=== PATIENT | male | born 1970 | race Caucasian/White ===

== ENCOUNTER 2017-02-12 14:25 | Observation (INO) | payer BC, OTHER ==
--- NOTE | 2017-02-12 14:40 | EDM.PDOC ---
ED HPI GENERAL MEDICAL PROBLEM - General Chief Complaint: General Stated Complaint: high blood pressure, flushed face, near passed out Time Seen by Provider: 02/12/17 14:35 Source of Information: Reports: Patient, Old Records ([facility] chart/EMR), Significant Other History Limitations: Reports: No Limitations - History of Present Illness INITIAL COMMENTS - FREE TEXT/NARRATIVE: Patient was brought to the emergency room via private automobile by his significant other for evaluation of borderline hypertensive crisis associated with near syncopal episodes with symptoms starting at work at about 13:00 hours this afternoon. 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 He was evaluated by the [facility] nurse with blood pressure of 150/100 at that time. He was later evaluated by his regular provider, Brenda Jenkins PA-C, at [facility] in [place], with a blood pressure of 170/108 and some nonspecific shakiness and questionable postictal condition in that facility. An EKG was conducted by his provider, however no further medications, evaluation, etc. were completed in that facility prior to transfer to our emergency room. Note that his provider apparently recommended ambulance transfer, however the patient requested transfer via private automobile. No direct history of seizure activity, stool or urine incontinence, etc. despite the above history. He does have a known history of hypertension, however has not had medical therapy for quite some time. Patient did have some bilateral frontal headaches with the above symptoms, however no other neurological deficits, visual changes, diplopia , change in mental status, etc. The patient denies any chest pain/pressure, heart flutter, orthopnea, diaphoresis, paresthesias, recent decreased exercise tolerance, or any other anginal-type symptoms. No recent history of abdominal pain, heartburn, nausea, diarrhea, melena, gross hematochezia, or any food intolerance, including fatty foods, etc. with normal bowel movement at about 13: 00 hours today. His arthritis has been stable with exception of chronic neck and low back pain. The patient also denies any recent fever, cough, wheezing, dyspnea, etc.. No recent history of OTC cold preparations, increased caffeine intake, etc.. He denies any pain or discomfort at this time, although he did have some nonspecific left lower quadrant abdominal discomfort earlier this morning. Onset: Today, Sudden Onset Date: 02/12/17 Onset Time: 12:00 Duration: Improving Location: Reports: Neck (Chronic), Back (Chronic). Denies: Head, Face, Chest, Abdomen (Resolved), Pelvis, Upper Extremity, Left, Upper Extremity, Right, Lower Extremity, Left, Lower Extremity, Right, Generalized, Radiates to Quality: Reports: Ache. Denies: Burning, Dull, Pressure, Sharp, Stabbing, Throbbing Severity: Mild Improves with: Reports: None Worsens with: Reports: None Context: Reports: Other (As above) Associated Symptoms: Reports: Headaches, Syncope (Near syncope). Denies: Confusion, Chest Pain, Cough, Diaphoresis, Fever/Chills, Loss of Appetite, Malaise, Nausea/Vomiting, Rash, Seizure, Shortness of Breath, Weakness Treatments JET HANDLER: Reports: Other (see below) (None) Headache Pain Score (Numeric/FACES): 3 - Related Data Allergies Allergy/AdvReac Type Severity Reaction Status Date / Time No Known Allergies Allergy Verified 02/12/17 15:16 Home Meds: Home Meds Cyclobenzaprine [Flexeril] 10 mg PO TID PRN 01/10/16 [History] Sildenafil Citrate [Viagra] 50 mg PO DAILY PRN 01/10/16 [History] glipiZIDE [Glucotrol] 5 mg PO BID 01/10/16 [History] Diclofenac Sodium [Voltaren] 75 mg PO BIDMEALS 02/12/17 [History] Testosterone [Androgel] 1 applic TOP DAILY 02/12/17 [History] atorvaSTATin [Lipitor] 20 mg PO BEDTIME 02/12/17 [History] Past Medical History HEENT History: Reports: Hard of Hearing, Impaired Vision. 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 Denies: Afib, Aneurysm, Blood Clots/VTE/DVT, CAD, Heart Failure, Heart Murmur, FL, PVD, Syncope Other Cardiovascular History: Sinus Tachycardia Respiratory History: Reports: COPD, Sleep Apnea. Denies: Asthma, Bronchitis, Recurrent, Intubation, Difficult, Intubation, Previous, PE, Pneumonia, Recurrent , Pneumothorax, Pulmonary Fibrosis, TB Other Respiratory History: Patient unable to tolerate CPAP Gastrointestinal History: Reports: GERD. Denies: Bowel Obstruction, Celiac Disease, Cholelithiasis, Chronic Constipation, Chronic Diarrhea, Colon Polyp, Diverticulosis, Fecal Incontinence, Gastritis, GI Bleed, Hepatitis, Irritable Bowel Syndrome, Jaundice, Pancreatitis, PUD Genitourinary History: Reports: Other (See Below). Denies: Acute Renal Failure , BPH, Chronic Renal Insuffiency, Dialysis, Diabetic Nephropathy, Renal Calculus , STD, Urinary Incontinence, UTI, Recurrent Other Genitourinary History: Erectile dysfunction Musculoskeletal History: Reports: Arthritis, Back Pain, Chronic, Neck Pain, Chronic, Osteoarthritis. Denies: Amputation, Fracture, Fibromyalgia, Gout, RA, SLE Neurological History: Reports: Headaches, Chronic, Migraines. Denies: Cerebral Aneurysms, Concussion, CVA, Head Trauma, Neuropathy, Peripheral, Parkinson's, Reflex Sympathetic Dystrophy, Seizure, TIA Psychiatric History: Reports: None. Denies: Abuse, Victim of, ADD, ADHD, Addiction, Anxiety, Dementia, Depression, Psych Hospitalization(s), Psychosis, PTSD, Suicide Attempt, Suicidal Ideation Endocrine/Metabolic History: Reports: Diabetes, Type II, Obesity/BMI 30+. Denies: Diabetes, Type I, Hypothyroidism, IDDM Other Endocrine/Metabolic History: Testosterone deficiency, hypoalbuminemia Hematologic History: Reports: None. Denies: Anemia, B12 Deficiency, Blood Transfusion(s), Iron Deficiency Immunologic History: Reports: None. Denies: AIDS, HIV, SLE Oncologic (Cancer) History: Reports: None. Denies: Basal Cell Carcinoma, Colon , Hodgkin's Lymphoma, Leukemia, Lymphoma, Malignant Melanoma, Non-Hodgkin's Lymphoma, Squamous Cell Carcinoma Dermatologic History: Reports: None. Denies: Eczema, Psoriasis - Infectious Disease History Infectious Disease History: Reports: Chicken Pox. Denies: C-Difficile, Measles , Meningitis, Mononucleosis, MRSA, Pertussis (Whooping Cough), Rheumatic Fever, Rubella, Scarlet Fever, Shingles, VRE - Past Surgical History Head Surgeries/Procedures: Reports: None HEENT Surgical History: Reports: Adenoidectomy, Oral Surgery, Tonsillectomy, Other (See Below). Denies: Cataract Surgery, Eye Surgery, Laser Surgery, LASIK , Myringotomy w Tube(s), Naso-Sinus Surgery Other HEENT Surgeries/Procedures: Tonsillectomy and adenoidectomy at about age 18, [place] teeth extraction 3 at age 18 Cardiovascular Surgical History: Reports: None. Denies: Varicose, Vascular Surgery Respiratory Surgical History: Reports: None, Other (See Below). Denies: Lung Biopsies, Thoracentesis GI Surgical History: Reports: Appendectomy, Colon, Colonoscopy, EGD, Other (See Below). Denies: Cholecystectomy, Hernia, Abdominal, Hernia, Inguinal, Hernia Repair/Other, Polypectomy Other GI Surgeries/Procedures: Appendectomy at age 17, EGD and colonoscopy in 1991 Male Surgical History: Reports: Circumcision, Vasectomy, Other (See Below) Other Male Surgeries/Procedures: Circumcision as an , vasectomy at age 25 Endocrine Surgical History: Reports: None. Denies: Thyroid Biopsy Neurological Surgical History: Reports: None. Denies: C-Spine, Discectomy, Laminectomy, Lumbar Spine, Sacral Spine, Spinal Fusion, Vertebroplasty Musculoskeletal Surgical History: Reports: None. Denies: Arthroscopic Procedure , Carpal Tunnel, Ganglion Cyst, Joint Replacement, ORIF, Shoulder Surgery Oncologic Surgical History: Reports: None Dermatological Surgical History: Reports: None - Past Imaging History Past Imaging History: Reports: MRI (MRI of the right shoulder in about 2011), Sleep Study Social & Family History - Family History HEENT: Reports: None. Denies: Allergic Rhinitis, Glaucoma, Macular Degeneration , Retinal Detachment Cardiac: Reports: CAD, FL, Other (See Below). Denies: AICD, Aneurysm, Arrhythmia, Blood Clots/VTE/DVT, Heart Failure, Heart Murmur, High Cholesterol, Hypertension, Syncope Other Cardiac Family History: Maternal uncle with FL in his 40s, mother with CABG x4 in her 60s with history of silent MIs Respiratory: Reports: Asthma, COPD, Other (See Below). Denies: PE, Pneumothorax , Sleep Apnea Other Respiratory Family Hisory: 3 children of asthma, maternal grandfather with COPD with history of tobacco use, father with possible COPD secondary to tobacco use GI: Reports: Colon Polyps, Pancreatitis, Other (See Below). Denies: Celiac Disease, Cholelithiasis, GERD, GI bleed, Inflammatory Bowel Disease, Irritable Bowel Syndrome, PUD Other GI Family History: maternal father with colonic polyps, father with history pancreatitis secondary to alcohol abuse : Reports: None. Denies: Dialysis, Renal Calculus, Renal Disease/ Insufficiency, UTI, Recurrent OBGYN: Reports: None. Denies: Dysfunctional uterine bleeding, Endometriosis, Fibroids, Recurrent Spontaneous Musculoskeletal: Reports: None. Denies: Gout, Osteoarthritis, RA, SLE Neurological: Reports: CVA, Seizure, Other (See Below). Denies: Alzheimers Disease, Cerebral Aneurysms, Dementia, Migraines, MS, Neuropathy, Peripheral, Parkinson's, TIA Other Neurological Family History: paternal great grandmother with CVA at about age 92, son with seizures since age 16 secondary to football injury Psychiatric: Reports: Anxiety, Depression, Other (See Below) Other Psychiatric Family History: Father with history of alcohol abuse, anxiety , and depression with subsequent postoperative narcotic addiction Endocrine/Metabolic: Reports: Diabetes, type II, IDDM, Other (See Below). Denies: Diabetes, Type I, Hypothyroidism Other Endocrine/Metabolic Family History: IDDM in parents Hematologic: Reports: Anemia, Other (See Below) Other Hematologic Family History: Father with postoperative anemia Immunologic: Reports: None. Denies: AIDS, HIV, SLE Dermatologic: Reports: Eczema, Other (See Below). Denies: Psoriasis Other Dermatologic Family History: Son with eczema Oncologic: Reports: Colon, Pancreatic, Other (See Below). Denies: Hodgkin's Lymphoma, Leukemia, Lymphoma, Non-Hodgkin's Lymphoma, Prostate Other Oncologic Family History: Paternal grandmother with fatal pancreatic cancer in her 80s, possible fatal colon cancer in maternal grandfather in his 80s, paternal grandaunt with fatal unknown type of cancer in her 60s - Tobacco Use Smoking Status *Q: Current Every Day Smoker Tobacco Use Within Last Twelve Months: Snuff/Dip Years of Tobacco use: 13 Packs/Tins Daily: 0.2 (Started chewing at age 34 with average use of one can per week) Used Tobacco, but Quit: No Smoking Cessation Information Provided To Patient: Yes Second Hand Smoke Exposure: No Second Hand Smoke Education Provided: No - Caffeine Use Caffeine Use: Reports: Soda (3-4 sodas per day). Denies: Coffee, Energy Drinks , Tea - Alcohol Use Alcohol Use History: Yes Days Per Week of Alcohol Use: 0 (No previous DWIs, problems with alcohol abuse, etc.) Number of Drinks Per Day: 6 (Usually beer once a month) Total Drinks Per Week: 0 Alcohol Use in Last Twelve Months: Yes Alcohol Use Frequency: Socially - Recreational Drug Use Recreational Drug Use: No Drug Use in Last 12 Months: No Recreational Drug Type: Denies: Amphetamines (Speed), Cocaine, Flunitrazepam, Heroin, LSD (Acid), Marijuana/Hashish, Methamphetamine, Morphine - Living Situation & Occupation Living situation: Reports: (2005, 3 children), Alone 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 Denies: Fever, Chills, Malaise, Weakness, Fatigue, Night Sweats , Diaphoresis, Decreased Appetite, Weight Gain HEENT: Reports: No Symptoms. Denies: Contact Lenses, Dental Pain, Ear Pain, Eye Discharge, Eye Pain, Glasses, Hearing Loss, Rhinitis, Sinus Problem, Throat Pain, Throat Swelling, Vertigo, Vision Change Respiratory: Reports: No Symptoms. Denies: Shortness of Breath, Wheezing, Pleuritic Chest Pain, Cough, Sputum, Hemoptysis Cardiovascular: Reports: Blood Pressure Problem (As above), Lightheadedness, Syncope (Near-syncope as above). Denies: Claudication, Dyspnea on Exertion, Edema, Orthopnea, Palpitations, PND Endocrine: Reports: No Symptoms. Denies: Fatigue, High Glucose, Low Glucose, Polydypsia, Polyuria GI/Abdominal: Reports: Abdominal Pain (Nonspecific as above). Denies: Anorexia , Black Stool, Bloody Stool, Constipation, Diarrhea, Decreased Appetite, Difficulty Swallowing, Distension, Flatus, Hematemesis, Hematochezia, Melena, Nausea, Stool Incontinence, Vomiting : Reports: No Symptoms. Denies: Discharge, Dysuria, Flank Pain, Frequency, Hematuria, Incontinence, Pain, Urgency, Urinary Retention Musculoskeletal: Reports: Neck Pain (Chronic), Back Pain (Chronic low back). Denies: Shoulder Pain, Arm Pain, Hand Pain, Leg Pain, Joint Swelling, Muscle Pain Skin: Reports: Burn(s) (Chronic first-degree facial and auricular bilaterally secondary to welding exposure). Denies: Jaundice, Pallor, Diaphoresis, Bruising , Pruritis, Rash, Erythema, Wound Neurological: Reports: Dizziness, Syncope (Near-syncope as above). Denies: Headache, Numbness, Paresthesia, Pre-Existing Deficit, Seizure, Tingling, Tremors, Trouble Speaking, Difficulty Walking, Weakness, Change in Speech, Gait Disturbance Psychiatric: Reports: No Symptoms. Denies: Agitation, Anxiety, Confusion, Cravings, Depression, Hallucinations, Suicidal Ideation Hematologic/Lymphatic: Reports: No Symptoms. Denies: Anemia Immunologic: Reports: No Symptoms. Denies: Seasonal Allergy ED EXAM, GENERAL - Physical Exam Exam: See Below Exam Limited By: No Limitations General Appearance: Alert, WD/WN, No Apparent Distress Eye Exam: Bilateral Eye: EOMI, Normal Fundi, Normal Inspection (No nystagmus), PERRL Ears: Normal External Exam, Normal Canal, Normal TMs, Hearing Loss (Mild stable bilateral hearing loss) Nose: Normal Inspection, Normal Mucosa, No Blood Throat/Mouth: Normal Inspection, Normal Lips, Normal Teeth, Normal Gums, Normal Oropharynx, Normal Voice, No Airway Compromise. No: Dysphagia, Inflammation Head: Atraumatic, Normocephalic, Other (Mild facial and bilateral periauricular first degree fam secondary to welding exposure as above). No: Facial Swelling , Facial Tenderness, Sinus Tenderness Neck: Normal Inspection, Supple, Non-Tender, Full Range of Motion. No: Carotid Bruit, Lymphadenopathy (L), Lymphadenopathy (R), Thyromegaly Respiratory/Chest: No Respiratory Distress, Lungs Clear, Normal Breath Sounds, No Accessory Muscle Use, Chest Non-Tender. No: Pleural Rub, Retractions Cardiovascular: Normal Peripheral Pulses, Regular Rate, Rhythm, No Edema, No Gallop, No JVD, No Murmur, No Rub. No: Gallop/S3, Gallop/S4, Friction Rub Peripheral Pulses: 2+: Radial (L), Radial (R), Dorsalis Pedis (L), Dorsalis Pedis (R) GI/Abdominal: Normal Bowel Sounds, Soft, Non-Tender, No Organomegaly, No Distention, No Abnormal Bruit, No Mass, Pelvis Stable, Other (Obese). No: Guarding (Male) Exam: Deferred Rectal (Males) Exam: Deferred Back Exam: Normal Inspection, Full Range of Motion. No: CVA Tenderness (L), CVA Tenderness (R), Muscle Spasm Extremities: Normal Inspection, Normal Range of Motion, Non-Tender, No Pedal Edema, Normal Capillary Refill. No: Erin's Sign Neurological: Alert, Oriented, CN II-XII Intact, Normal Cognition, Normal Gait, Normal Reflexes (Negative Babinski's, finger to nose, and pronator rotation tests. No evidence of facial paresis, tongue deviation, orthostasis, etc.. Excellent reverse thought processes.), No Motor/Sensory Deficits Psychiatric: Normal Affect, Normal Mood Skin Exam: Warm, Dry, Intact, Normal Color, No Rash, Erythema (Facial first degree fam as above). No: Diaphoretic, Wound/Incision Lymphatic: No Adenopathy EKG INTERPRETATION EKG Date: 02/12/17 Time: 14:03 (EKG from the [facility] in [place]) Rhythm: NSR Rate (Beats/Min): 75 [place]: Normal (Left) P-Wave: Present (Mild Diffuse biphasic P waves with pulmonary hypertension by EKG) QRS: Normal (QRS interval of 0.08 seconds with T-wave inversion in lead 3) ST-T: Normal QT: Normal MO/PQ Interval: 0.18 seconds Comparison: No Change (Last EKG on 01/13/16) EKG Interpretation Comments: 1. No acute ischemic changes 2. Pulmonary hypertension by EKG Course - Vital Signs Last Recorded V/S: Last Vital Signs Temp 36.6 C 02/12/17 15:00 Pulse 70 02/12/17 15:35 Resp 18 02/12/17 15:00 BP 143/100 H 02/12/17 15:35 Pulse Ox 99 02/12/17 15:06 Vital Signs - 24 hr 02/12/17 02/12/17 02/12/17 14:45 14:50 15:00 Temperature [ 36.1 C 36.6 C Oral] Pulse, 80 Peripheral Pulse, 82 69 Peripheral [ Right Pulse Oximetry] Respiratory 16 18 Rate Blood Pressure 148/101 H Blood Pressure 142/101 H 142/101 H [Right Upper Arm] O2 Sat by Pulse 100 99 Oximetry O2 Sat by Pulse Oximetry [ Nasal Cannula] 02/12/17 02/12/17 02/12/17 15:06 15:12 15:27 Temperature [ Oral] Pulse, Peripheral Pulse, 68 70 Peripheral [ Right Pulse Oximetry] Respiratory 17 14 Rate Blood Pressure Blood Pressure 141/99 H 143/100 H [Right Upper Arm] O2 Sat by Pulse 99 98 Oximetry O2 Sat by Pulse 99 Oximetry [ Nasal Cannula] 02/12/17 02/12/17 15:35 16:02 Temperature [ Oral] Pulse, 70 Peripheral Pulse, 73 Peripheral [ Right Pulse Oximetry] Respiratory 13 Rate Blood Pressure 143/100 H Blood Pressure 144/94 H [Right Upper Arm] O2 Sat by Pulse 99 Oximetry O2 Sat by Pulse Oximetry [ Nasal Cannula] - Orders/Labs/Meds Orders: Active Orders 24 hr Category Date Time Status Cardiac Monitoring [RC] . DIRECTED Care 02/12/17 14:41 Active EKG Documentation Completion [RC] ASDIRECTED Care 02/12/17 14:41 Inactive Oxygen Therapy, ED [RC] CONTINUOUS Care 02/12/17 14:41 Active Peripheral IV Care [RC] . DIRECTED Care 02/12/17 14:41 Active Pulse Oximetry [RC] CONTINUOUS Care 02/12/17 14:41 Active Up With Assistance [RC] PFP Care 02/12/17 14:41 Active Vital Signs [RC] PFP Care 02/12/17 14:41 Active Nothing per Oral Now Diet [DIET] Diet 02/12/17 Breakfast Active Chest 1V Frontal [CR] Stat Exams 02/12/17 14:41 Taken Sodium Chloride 0.9% [Saline Flush] Med 02/12/17 14:41 Active 10 ml FLUSH ASDIRECTED PRN Obtain Past Medical Record [OM.PC] Urgent Oth 02/12/17 14:41 Active Peripheral IV Insertion Adult [OM.PC] Stat Oth 02/12/17 14:41 Ordered Resuscitation Status Stat Resus Stat 02/12/17 14:41 Ordered Medication Orders Sodium Chloride (Saline Flush) 10 ml FLUSH ASDIRECTED PRN PRN Reason: Keep Vein Open Labs: Laboratory Tests 02/12/17 02/12/17 02/12/17 Range/Units 14:45 14:45 14:45 WBC 8.1 (4.0-10.2) K/uL RBC 5.63 H (4.33-5.41) M/uL Hgb 17.1 H D (13.1-16.8) g/dL Hct 50.1 H (39.0-49.0) % MCV 89.0 D (84.0-98.0) fL MCH 30.4 (28.2-33.3) pg MCHC 34.1 (31.7-36.0) g/dL RDW 12.7 (11.2-14.1) % Plt Count 268 (150-350) K/uL Neut % (Auto) 49.7 (45.0-80.0) % Lymph % (Auto) 40.2 (10.0-50.0) % Ware % (Auto) 8.3 (2.0-14.0) % Eos % (Auto) 1.4 (0.0-5.0) % Baso % (Auto) 0.4 (0.0-2.0) % Neut # (Auto) 4.02 (1.40-7.00) K/uL Lymph # (Auto) 3.25 (0.50-3.50) K/uL Ware # (Auto) 0.67 (0.00-1.00) K/uL Eos # (Auto) 0.11 (0.00-0.50) K/uL Baso # (Auto) 0.03 (0.00-0.20) K/uL PT 10.9 (9.8-11.7) SEC INR 1.0 APTT 26.4 (22.1-29.8) SEC D-Dimer, Quantitative < 100 (0-400) ng/mL Sodium (136-145) mmol/L Potassium (3.5-5.1) mmol/L Chloride (98-107) mmol/L Carbon Dioxide (21.0-32.0) mmol/L BUN (7-18) mg/dL Creatinine (0.51-1.17) mg/dL Est Cr Clr Drug Dosing Estimated GFR (MDRD) mL/min Glucose (74-106) mg/dL Lactic Acid (0.4-2.0) mmol/L Uric Acid (2.6-7.2) mg/dL Calcium (8.5-10.1) mg/dL Magnesium (1.8-2.4) mg/dL Total Bilirubin (0.2-1.0) mg/dL AST (15-37) U/L ALT (12-78) U/L Alkaline Phosphatase (46-116) IU/L Creatine Kinase (26-308) U/L Creatine Kinase Index (0.0-2.5) % CK-MB (CK-2) (0.00-3.60) ng/mL Troponin I (0.000-0.056) ng/mL NT-Pro-B Natriuret Pep (0-125) pg/mL Total Protein (6.4-8.2) g/dL Albumin (3.4-5.0) g/dL TSH, Ultra Sensitive (0.358-3.740) mIU/mL 02/12/17 02/12/17 Range/Units 14:45 14:45 WBC (4.0-10.2) K/uL RBC (4.33-5.41) M/uL Hgb (13.1-16.8) g/dL Hct (39.0-49.0) % MCV (84.0-98.0) fL MCH (28.2-33.3) pg MCHC (31.7-36.0) g/dL RDW (11.2-14.1) % Plt Count (150-350) K/uL Neut % (Auto) (45.0-80.0) % Lymph % (Auto) (10.0-50.0) % [place] % (Auto) (2.0-14.0) % Eos % (Auto) (0.0-5.0) % Baso % (Auto) (0.0-2.0) % Neut # (Auto) (1.40-7.00) K/uL Lymph # (Auto) (0.50-3.50) K/uL Ware # (Auto) (0.00-1.00) K/uL Eos # (Auto) (0.00-0.50) K/uL Baso # (Auto) (0.00-0.20) K/uL PT (9.8-11.7) SEC INR APTT (22.1-29.8) SEC D-Dimer, Quantitative (0-400) ng/mL Sodium 142 (136-145) mmol/L Potassium 4.2 (3.5-5.1) mmol/L Chloride 105 (98-107) mmol/L Carbon Dioxide 29.2 (21.0-32.0) mmol/L BUN 16 (7-18) mg/dL Creatinine 1.08 (0.51-1.17) mg/dL Est Cr Clr Drug Dosing TNP Estimated GFR (MDRD) > 60 mL/min Glucose 90 (74-106) mg/dL Lactic Acid 1.3 (0.4-2.0) mmol/L Uric Acid 5.3 (2.6-7.2) mg/dL Calcium 9.3 (8.5-10.1) mg/dL Magnesium 1.9 (1.8-2.4) mg/dL Total Bilirubin 0.5 (0.2-1.0) mg/dL AST 32 (15-37) U/L ALT 56 (12-78) U/L Alkaline Phosphatase 48 (46-116) IU/L Creatine Kinase 582 H (26-308) U/L Creatine Kinase Index 1.0 (0.0-2.5) % CK-MB (CK-2) 5.90 H* (0.00-3.60) ng/mL Troponin I 0.034 (0.000-0.056) ng/mL NT-Pro-B Natriuret Pep 18 (0-125) pg/mL Total Protein 8.1 (6.4-8.2) g/dL Albumin 4.3 (3.4-5.0) g/dL TSH, Ultra Sensitive 2.369 (0.358-3.740) mIU/mL Meds: Medications Generic Name Dose Route Start Last Admin Trade Name Freq PRN Reason Stop Dose Admin Sodium Chloride 10 ml 02/12/17 14:41 Saline Flush FLUSH ASDIRECTED PRN Keep Vein Open Discontinued Medications Generic Name Dose Route Start Last Admin Trade Name Freq PRN Reason Stop Dose Admin Famotidine 40 mg 02/12/17 14:41 02/12/17 14:59 Pepcid IVPUSH 02/12/17 14:42 40 mg ONETIME ONE Administration Metoprolol Tartrate 2.5 mg 02/12/17 14:41 02/12/17 14:50 Lopressor IVPUSH 02/12/17 14:42 2.5 mg ONETIME ONE Administration Metoprolol Tartrate 25 mg 02/12/17 15:33 02/12/17 15:35 Lopressor PO 02/12/17 15:34 25 mg ONETIME ONE Administration - Radiology Interpretation Free Text/Narrative:: 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 Note improvement of pulses into the 60s after medical therapy Chest x-ray, portable, shows somewhat suboptimal film with poor inspiration with evidence of moderate cardiomegaly, mild to moderate pulmonary obstructive disease, with probable pulmonary hypertension and/or mild centralized CHF. No pneumothorax or pulmonary infiltrates. Moderately elevated right hemidiaphragm Departure - Departure Time of Disposition: 16:15 Disposition: Refer to Observation Condition: Good Clinical Impression: Peptic reflux disease, Testosterone deficiency, Near syncope, Elevated CK, Tobacco abuse counseling Hypertension Qualifiers: Hypertension type: essential hypertension Qualified Code(s): I10 - Essential ( primary) hypertension COPD (chronic obstructive pulmonary disease) Qualifiers: COPD type: COPD with acute lower respiratory infection Qualified Code(s): J44.0 - Chronic obstructive pulmonary disease with acute lower respiratory infection Diabetes mellitus Qualifiers: Diabetes mellitus type: type 2 Diabetes mellitus complication status: without complication Diabetes mellitus retirement insulin use: with retirement use Qualified Code(s): E11.9 - Type 2 diabetes mellitus without complications Hyperlipidemia Qualifiers: Hyperlipidemia type: mixed hyperlipidemia Qualified Code(s): E78.2 - Mixed hyperlipidemia Osteoarthritis Qualifiers: Osteoarthritis location: multiple joints Osteoarthritis type: primary Qualified Code(s): M15.0 - Primary generalized (osteo)arthritis - Discharge Information Forms: ED Department Discharge Care Plan Goals: See plan - Problem List & Annotations (1) Near syncope SNOMED Code(s): 261376068 Code(s): R55 - SYNCOPE AND COLLAPSE Status: Acute Priority: High Current Visit: Yes Onset Date: 02/12/17 Annotation/Comment:: Near syncopal episode and borderline hypertensive crisis as above. No chest pain or true anginal type symptoms. No neurological deficits or true evidence of seizure type activity. Chest pain protocol was not initiated secondary to absence of anginal type symptoms. Mild change in troponin I, which is still normal, with otherwise normal BNP, d-dimer, EKG, etc. Note normal cardiac index as below. Initiate standard rule out [place] orders. Consider further workup on an outpatient basis, including echocardiogram, Cardiolite stress test, etc. secondary to his multiple cardiac risk factors. Dr. Jose assumes care in the a.m.. Neurological checks with vitals. Cardiology consultation depending on his clinical course.. Patient normally gets his care through the [facility] in [place]. Patient did not have a headache on arrival with mild borderline 2/10 headache prior to admission (2) Hypertension SNOMED Code(s): 17248382 Code(s): I10 - ESSENTIAL (PRIMARY) HYPERTENSION Status: Chronic Priority : Medium Annotation/Comment:: Borderline hypertensive crisis as above Blood pressure is much improved on admission with IV and oral metoprolol therapy as above. Secondary to his history of diabetes mellitus also initiate lisinopril therapy later today. Qualifiers: Hypertension type: essential hypertension Qualified Code(s): I10 - Essential (primary) hypertension (3) COPD (chronic obstructive pulmonary disease) SNOMED Code(s): 09431499 Code(s): J44.9 - CHRONIC OBSTRUCTIVE PULMONARY DISEASE, UNSPECIFIED Status : Chronic Priority: Medium Annotation/Comment:: Stable by history with no recent fever or bronchitic type symptoms Qualifiers: COPD type: COPD with acute lower respiratory infection Qualified Code(s): J44.0 - Chronic obstructive pulmonary disease with acute lower respiratory infection (4) Osteoarthritis SNOMED Code(s): 706773266 Code(s): M19.90 - UNSPECIFIED OSTEOARTHRITIS, UNSPECIFIED SITE Status: Chronic Priority: Medium Annotation/Comment:: Stable by history with no myalgias, muscle weakness, etc. Qualifiers: Osteoarthritis location: multiple joints Osteoarthritis type: primary Qualified Code(s): M15.0 - Primary generalized (osteo)arthritis (5) Diabetes mellitus SNOMED Code(s): 61741442 Code(s): E11.9 - TYPE 2 DIABETES MELLITUS WITHOUT COMPLICATIONS Status: Acute Priority: High Annotation/Comment:: Stable by history. Glycosylated hemoglobin in the a.m. Her home blood sugars ranging between the 60s and 150s recently by his history Qualifiers: Diabetes mellitus type: type 2 Diabetes mellitus complication status: without complication Diabetes mellitus retirement insulin use: with intermediate project manager use Qualified Code(s): E11.9 - Type 2 diabetes mellitus without complications ; Z79.4 - long-term (current) use of insulin (6) Hyperlipidemia SNOMED Code(s): 53461516 Code(s): E78.5 - HYPERLIPIDEMIA, UNSPECIFIED Status: Chronic Priority: Medium Annotation/Comment:: Currently under therapy. Lipid panel in the a.m. Qualifiers: Hyperlipidemia type: mixed hyperlipidemia Qualified Code(s): E78.2 - Mixed hyperlipidemia (7) Peptic reflux disease SNOMED Code(s): 59088863 Code(s): K21.9 - GASTRO-ESOPHAGEAL REFLUX DISEASE WITHOUT ESOPHAGITIS Status: Chronic Priority: Medium Annotation/Comment:: Stable by history. IV Pepcid given as GI prophylaxis in the emergency room (8) Testosterone deficiency SNOMED Code(s): 0972073772470 Code(s): E29.1 - TESTICULAR HYPOFUNCTION Status: Chronic Priority: Medium Annotation/Comment:: Currently under therapy. The patient was counseled on the risks of testosterone replacement, including increased risk of thrombosis, prostate cancer, etc. This will be discussed further with his regular providers with consideration of discontinuation of this medication secondary to multiple cardiac risk factors (9) Tachycardia SNOMED Code(s): 1116612 Code(s): R00.0 - TACHYCARDIA, UNSPECIFIED Status: Chronic Priority: Medium Current Visit: No Onset Date: 01/11/16 Annotation/Comment:: Patient with previous history of tachycardia but not during our evaluation. Beta ronny therapy initiated as above. Continue to observe closely. (10) Elevated CK SNOMED Code(s): 775475257 Code(s): R74.8 - ABNORMAL LEVELS OF OTHER SERUM ENZYMES Status: Acute Priority: High Current Visit: Yes Onset Date: 02/12/17 Annotation/Comment: : CK and CK-MB elevation possibly secondary to physical activity and/or current statin therapy with no symptoms at this time. Note normal cardiac index (11) Tobacco abuse counseling SNOMED Code(s): 615258501, 028522825 Code(s): Z71.6 - TOBACCO ABUSE COUNSELING Status: Chronic Priority: Medium Current Visit: Yes Annotation/Comment:: Patient was counseled on the use of Nicorette gum with tobacco cessation strongly encouraged. Tobacco cessation information provided at discharge. - Problem List Review Problem List Initiated/Reviewed/Updated: Yes - My Orders Last 24 Hours: My Active Orders 02/12/17 14:41 Cardiac Monitoring [RC] . DIRECTED EKG Documentation Completion [RC] ASDIRECTED Oxygen Therapy, ED [RC] CONTINUOUS Peripheral IV Care [RC] . DIRECTED Pulse Oximetry [RC] CONTINUOUS Up With Assistance [RC] PFP Vital Signs [RC] PFP Chest 1V Frontal [CR] Stat Sodium Chloride 0.9% [Saline Flush] 10 ml FLUSH ASDIRECTED PRN Obtain Past Medical Record [OM.PC] Urgent Peripheral IV Insertion Adult [OM.PC] Stat Resuscitation Status Stat 02/12/17 Breakfast Nothing per Oral Now Diet [DIET] - Assessment/Plan Last 24 Hours: My Active Orders 02/12/17 14:41 Cardiac Monitoring [RC] . DIRECTED EKG Documentation Completion [RC] ASDIRECTED Oxygen Therapy, ED [RC] CONTINUOUS Peripheral IV Care [RC] . DIRECTED Pulse Oximetry [RC] CONTINUOUS Up With Assistance [RC] PFP Vital Signs [RC] PFP Chest 1V Frontal [CR] Stat Sodium Chloride 0.9% [Saline Flush] 10 ml FLUSH ASDIRECTED PRN Obtain Past Medical Record [OM.PC] Urgent Peripheral IV Insertion Adult [OM.PC] Stat Resuscitation Status Stat 02/12/17 Breakfast Nothing per Oral Now Diet [DIET] Assessment:: As above Plan: As above. Extensive precautions were given to the patient, who is in agreement with the treatment plan. The patient's condition is stable enough for observation status and general supervision.
[2017-02-12] MEDS ORDERED: Famotidine 20 MG/2 ML SDV IVPUSH ONE (14:41)
[2017-02-12] MEDS ORDERED: Metoprolol Tartrate 5 MG/5 ML SDV IVPUSH ONE (14:41)
[2017-02-12] MEDS ORDERED: Sodium Chloride 0.9% 10 ML Syringe FLUSH PRN ×2 (14:41→16:26)
[2017-02-12 15:22] LABS: CHLORIDE,CL 105 mmol/L (98-107); SODIUM,NA 142 mmol/L (136-145)
[2017-02-12] MEDS ORDERED: Metoprolol Tartrate 50 MG Tab PO ONE (15:33)
[2017-02-12] MEDS ORDERED: Temazepam 15 MG Cap PO PRN (16:26)
[2017-02-12] MEDS ORDERED: Albuterol 0.083% 2.5 MG/3 ML Neb Soln INH PRN (16:29)
[2017-02-12] MEDS ORDERED: Albuterol/Ipratropium 3.0-0.5 MG/3 ML Neb Soln NEB PRN (16:29)
[2017-02-12] MEDS: glipiZIDE 5 MG Tab PO SCH (17:47)
[2017-02-12] MEDS: Diclofenac Sodium 75 MG Tab.EC PO SCH (17:47)
[2017-02-12] MEDS: Acetaminophen 325 MG Tab PO PRN (17:48)
[2017-02-12] MEDS ORDERED: Lisinopril 10 MG Tab PO SCH (18:00)
[2017-02-12] MEDS ORDERED: Enalaprilat 1.25 MG/ML SDV IVPUSH ONE (19:36)
[2017-02-12] MEDS ORDERED: atorvaSTATin 40 MG Tab PO SCH (20:00)
[2017-02-12] MEDS ORDERED: Lisinopril 10 MG Tab PO ONE (22:00)
[2017-02-13] MEDS: Cyclobenzaprine 10 MG Tab PO PRN ×2 (01:29→08:26)
[2017-02-13] MEDS: Acetaminophen 325 MG Tab PO PRN ×2 (01:29→09:30)
[2017-02-13 07:53] LABS: CHLORIDE,CL 104 mmol/L (98-107); SODIUM,NA 139 mmol/L (136-145)
[2017-02-13] MEDS ORDERED: Metoprolol Succinate 25 MG Tab.ER PO SCH (08:00)
[2017-02-13] MEDS: glipiZIDE 5 MG Tab PO SCH (08:10)
[2017-02-13] MEDS: Diclofenac Sodium 75 MG Tab.EC PO SCH (08:11)
--- NOTE | 2017-02-13 11:40 | PCM.DCSUM1 ---
Discharge Summary - Hospital Course Free Text/Narrative:: Patient doing well. Denies symptoms. BP back to normal. Discussed with him causes of hypertension including his use of caffeine. Will hold all caffeine beverages at time of DC. Patient to follow up with PCP for post hospitalization visit in 1 week. Patient is to check his BP 3 times a week at work and report to PCP his BPs. - Discharge Data Discharge Date: 02/13/17 Discharge Disposition: Home, Self-Care 01 Condition: Good - Discharge Diagnosis/Problem(s) (1) Near syncope SNOMED Code(s): 833077080 ICD Code: R55 - SYNCOPE AND COLLAPSE Status: Acute Priority: High Current Visit: Yes Onset Date: 02/12/17 Problem Details: Reports no further symptoms. Patient would like to DC. (2) Hypertension SNOMED Code(s): 08229664 ICD Code: I10 - ESSENTIAL (PRIMARY) HYPERTENSION Status: Chronic Priority : Medium Current Visit: Yes Problem Details: BPs stable at this time. Back to baseline. Qualifiers: Hypertension type: essential hypertension Qualified Code(s): I10 - Essential (primary) hypertension - Patient Instructions Diet: Diabetic Diet (No caffeine ) Diet, Other: No Caffeine Activity: As Tolerated Driving: May Drive Today Showering/Bathing: May Shower Other/Special Instructions: Follow up with PCP in 1 week for post hospital visit. Check your BP 3 times a week and report those readings back to your PCP - Discharge Plan Home Medications: Home Meds Cyclobenzaprine [Flexeril] 10 mg PO TID PRN 01/10/16 [History] Sildenafil Citrate [Viagra] 50 mg PO DAILY PRN 01/10/16 [History] glipiZIDE [Glucotrol] 5 mg PO BID 01/10/16 [History] Diclofenac Sodium [Voltaren] 75 mg PO BIDMEALS 02/12/17 [History] Testosterone [Androgel] 1 applic TOP DAILY 02/12/17 [History] atorvaSTATin [Lipitor] 20 mg PO BEDTIME 02/12/17 [History] Forms: ED Department Discharge Referrals: ROBERTO UNGER [Other] (Follow up with PCP in 1 week. Find a PCP in this area. ) - Discharge Summary/Plan Comment DC Time >30 min.: No - General Info Date of Service: 02/13/17 - Review of Systems General: Reports: No Symptoms HEENT: Reports: No Symptoms Pulmonary: Reports: No Symptoms Cardiovascular: Reports: No Symptoms Gastrointestinal: Reports: No Symptoms Genitourinary: Reports: No Symptoms Musculoskeletal: Reports: No Symptoms Skin: Reports: No Symptoms Neurological: Reports: No Symptoms Psychiatric: Reports: No Symptoms - Patient Data Vitals - Most Recent: Last Vital Signs Temp 97.7 F 02/13/17 10:00 Pulse 72 02/13/17 10:00 Resp 16 02/13/17 10:00 BP 117/80 02/13/17 10:00 Pulse Ox 97 02/13/17 10:00 Weight - Most Recent: 231 lb 8 oz I&O - Last 24 hours: Intake & Output 02/12/17 02/13/17 02/13/17 22:59 06:59 14:59 Intake Total 480 Output Total 200 Balance 280 Lab Results - Last 24 hrs: Laboratory Results - last 24 hr 02/12/17 02/12/17 02/12/17 Range/Units 19:29 20:20 20:50 WBC (4.0-10.2) K/uL RBC (4.33-5.41) M/uL Hgb (13.1-16.8) g/dL Hct (39.0-49.0) % MCV (84.0-98.0) fL MCH (28.2-33.3) pg MCHC (31.7-36.0) g/dL RDW (11.2-14.1) % Plt Count (150-350) K/uL Neut % (Auto) (45.0-80.0) % Lymph % (Auto) (10.0-50.0) % [place] % (Auto) (2.0-14.0) % Eos % (Auto) (0.0-5.0) % Baso % (Auto) (0.0-2.0) % Neut # (Auto) (1.40-7.00) K/uL Lymph # (Auto) (0.50-3.50) K/uL [place] # (Auto) (0.00-1.00) K/uL Eos # (Auto) (0.00-0.50) K/uL Baso # (Auto) (0.00-0.20) K/uL Sodium (136-145) mmol/L Potassium (3.5-5.1) mmol/L Chloride (98-107) mmol/L Carbon Dioxide (21.0-32.0) mmol/L BUN (7-18) mg/dL Creatinine (0.51-1.17) mg/dL Est Cr Clr Drug Dosing mL/min Estimated GFR (MDRD) mL/min Glucose (74-106) mg/dL POC Glucose 56 L 98 (65-110) mg/dl Hemoglobin A1c (4.3-5.7) % Calcium (8.5-10.1) mg/dL Total Bilirubin (0.2-1.0) mg/dL AST (15-37) U/L ALT (12-78) U/L Alkaline Phosphatase (46-116) IU/L Creatine Kinase 490 H (26-308) U/L Creatine Kinase Index 1.0 (0.0-2.5) % CK-MB (CK-2) 4.70 H* (0.00-3.60) ng/mL Troponin I 0.028 (0.000-0.056) ng/mL NT-Pro-B Natriuret Pep (0-125) pg/mL Total Protein (6.4-8.2) g/dL Albumin (3.4-5.0) g/dL Triglycerides (30-150) mg/dL Cholesterol (100-200) mg/dL LDL Cholesterol, Calc (0-100) mg/dL HDL Cholesterol (40-60) mg/dL 02/13/17 02/13/17 02/13/17 Range/Units 07:08 07:08 07:08 WBC 6.3 (4.0-10.2) K/uL RBC 5.26 (4.33-5.41) M/uL Hgb 16.2 (13.1-16.8) g/dL Hct 47.3 (39.0-49.0) % MCV 89.9 (84.0-98.0) fL MCH 30.8 (28.2-33.3) pg MCHC 34.2 (31.7-36.0) g/dL RDW 12.6 (11.2-14.1) % Plt Count 236 (150-350) K/uL Neut % (Auto) 49.7 (45.0-80.0) % Lymph % (Auto) 37.5 (10.0-50.0) % [place] % (Auto) 9.5 (2.0-14.0) % Eos % (Auto) 3.0 (0.0-5.0) % Baso % (Auto) 0.3 (0.0-2.0) % Neut # (Auto) 3.15 (1.40-7.00) K/uL Lymph # (Auto) 2.38 (0.50-3.50) K/uL [place] # (Auto) 0.60 (0.00-1.00) K/uL Eos # (Auto) 0.19 (0.00-0.50) K/uL Baso # (Auto) 0.02 (0.00-0.20) K/uL Sodium 139 (136-145) mmol/L Potassium 4.9 (3.5-5.1) mmol/L Chloride 104 (98-107) mmol/L Carbon Dioxide 29.8 (21.0-32.0) mmol/L BUN 13 (7-18) mg/dL Creatinine 1.19 H (0.51-1.17) mg/dL Est Cr Clr Drug Dosing 79.24 mL/min Estimated GFR (MDRD) > 60 mL/min Glucose 108 H (74-106) mg/dL POC Glucose (65-110) mg/dl Hemoglobin A1c 6.0 H (4.3-5.7) % Calcium 8.8 (8.5-10.1) mg/dL Total Bilirubin 0.5 (0.2-1.0) mg/dL AST 26 (15-37) U/L ALT 51 (12-78) U/L Alkaline Phosphatase 44 L (46-116) IU/L Creatine Kinase 425 H (26-308) U/L Creatine Kinase Index 0.9 (0.0-2.5) % CK-MB (CK-2) 4.00 H (0.00-3.60) ng/mL Troponin I 0.034 (0.000-0.056) ng/mL NT-Pro-B Natriuret Pep 13 (0-125) pg/mL Total Protein 7.1 (6.4-8.2) g/dL Albumin 3.6 (3.4-5.0) g/dL Triglycerides 95 (30-150) mg/dL Cholesterol 134 (100-200) mg/dL LDL Cholesterol, Calc 73 (0-100) mg/dL HDL Cholesterol 42 (40-60) mg/dL Med Orders - Current: Current Medications Acetaminophen (Tylenol) 650 mg PO Q4H PRN PRN Reason: Pain Last Admin: 02/13/17 09:30 Dose: 650 mg Albuterol (Proventil Neb Soln) 2.5 mg INH Q2H PRN PRN Reason: SHORTNESS OF BREATH Albuterol/Ipratropium (Duoneb 3.0-0.5 Mg/3 Ml) 3 ml NEB Q4HRRT PRN PRN Reason: Dyspnea Atorvastatin Calcium (Lipitor) 20 mg PO BEDTIME [facility] Last Admin: 02/12/17 20:25 Dose: 20 mg Coenzyme Q10 (Coenzyme Q10) 100 mg PO BID [facility] Last Admin: 02/13/17 08:13 Dose: 100 mg Cyclobenzaprine HCl (Flexeril) 10 mg PO TID PRN PRN Reason: Spasms Last Admin: 02/13/17 08:26 Dose: 10 mg Diclofenac Sodium (Voltaren) 75 mg PO BIDMEALS [facility] Last Admin: 02/13/17 08:11 Dose: 75 mg Glipizide (Glucotrol) 5 mg PO BIDMEALS [facility] Last Admin: 02/13/17 08:10 Dose: 5 mg Lisinopril (Prinivil) 10 mg PO QPM [facility] Metoprolol Succinate (Toprol Xl) 25 mg PO DAILY [facility] Last Admin: 02/13/17 08:29 Dose: Not Given Sodium Chloride (Saline Flush) 10 ml FLUSH ASDIRECTED PRN PRN Reason: Keep Vein Open Sodium Chloride (Saline Flush) 10 ml FLUSH Q12HR PRN PRN Reason: Keep Vein Open Temazepam (Restoril) 15 mg PO BEDTIME PRN PRN Reason: Insomnia Last Admin: 02/12/17 23:29 Dose: 15 mg Discontinued Medications Diazepam (Valium) 2.5 mg IVPUSH ONETIME ONE Stop: 02/12/17 19:39 Last Admin: 02/12/17 20:25 Dose: 2.5 mg Enalaprilat (Vasotec Iv) 1.25 mg IVPUSH ONETIME ONE Stop: 02/12/17 19:37 Last Admin: 02/12/17 20:26 Dose: 1.25 mg Famotidine (Pepcid) 40 mg IVPUSH ONETIME ONE Stop: 02/12/17 14:42 Last Admin: 02/12/17 14:59 Dose: 40 mg Lisinopril (Prinivil) 5 mg PO QPM VERITO Last Admin: 02/12/17 17:53 Dose: 5 mg Lisinopril (Prinivil) 10 mg PO ONETIME ONE Stop: 02/12/17 22:01 Last Admin: 02/12/17 22:00 Dose: 10 mg Metoprolol Tartrate (Lopressor) 2.5 mg IVPUSH ONETIME ONE Stop: 02/12/17 14:42 Last Admin: 02/12/17 14:50 Dose: 2.5 mg Metoprolol Tartrate (Lopressor) 25 mg PO ONETIME ONE Stop: 02/12/17 15:34 Last Admin: 02/12/17 15:35 Dose: 25 mg - Exam General: Reports: Alert, Oriented HEENT: Reports: Pupils Equal, Pupils Reactive, EOMI, Mucous Membr. Moist/[place]: Reports: Supple Lungs: Reports: Clear to Auscultation, Normal Respiratory Effort Cardiovascular: Reports: Regular Rate, Regular Rhythm GI/Abdominal Exam: Normal Bowel Sounds, Soft, Non-Tender, No Organomegaly, No Distention, No Abnormal Bruit, No Mass, Pelvis Stable (Male) Exam: Deferred Rectal (Males) Exam: Deferred Back Exam: Reports: Normal Inspection, Full Range of Motion Extremities: Normal Inspection, Normal Range of Motion, Non-Tender, No Pedal Edema, Normal Capillary Refill Skin: Reports: Warm, Dry, Intact Neurological: Reports: No New Focal Deficit *Q Meaningful Use (DIS) - VTE *Q VTE Criteria *Q: - Stroke *Q Stroke Criteria *Q: - AMI *Q AMI Criteria *Q:
[2017-02-13 17:06] VITALS: BP 130/97
[2017-02-13] MEDS ORDERED: Lisinopril 10 MG Tab PO SCH (18:00)
== END 2017-02-13 17:25 | disposition home or self-care (01) ==
LOC: LL.ED 14:25 → LL.MS 16:04
PROVIDERS: ADMIT Family Medicine; ATTEND Family Medicine
DX: R55 Syncope and collapse (principal); I10 Essential (primary) hypertension; E11.9 Type 2 diabetes mellitus without complications; J44.9 Chronic obstructive pulmonary disease, unspecified; G47.30 Sleep apnea, unspecified; K21.9 Gastro-esophageal reflux disease without esophagitis; E66.9 Obesity, unspecified; Z79.899 Other long term (current) drug therapy; Z68.30 Body mass index [BMI] 30.0-30.9, adult; Z90.49 Acquired absence of other specified parts of digestive tract; Z98.890 Other specified postprocedural states; Z98.52 Vasectomy status; F17.210 Nicotine dependence, cigarettes, uncomplicated
CPT/HCPCS: 36415; 71010; 80053; 80061; 82272; 82550; 82553; 82962; 83036; 83605; 83735; 83880; 84443; 84484; 84550; 85025; 85379; 85610; 85730; 87338; 93005; 96374; 96375; 99285; A9270; J3360; G0378; J3490; S0028

== ENCOUNTER 2017-02-14 14:44 | Emergency (ER) | payer BC ==
--- NOTE | 2017-02-14 14:53 | EDM.PDOC ---
ED HPI GENERAL MEDICAL PROBLEM - General Chief Complaint: Cardiovascular Problem Stated Complaint: chest pain - Related Data Allergies Allergy/AdvReac Type Severity Reaction Status Date / Time No Known Allergies Allergy Verified 02/14/17 14:47 Home Meds: Home Meds Cyclobenzaprine [Flexeril] 10 mg PO TID PRN 01/10/16 [History] Sildenafil Citrate [Viagra] 50 mg PO DAILY PRN 01/10/16 [History] glipiZIDE [Glucotrol] 5 mg PO BID 01/10/16 [History] Diclofenac Sodium [Voltaren] 75 mg PO BIDMEALS 02/12/17 [History] Testosterone [Androgel] 1 applic TOP DAILY 02/12/17 [History] atorvaSTATin [Lipitor] 20 mg PO BEDTIME 02/12/17 [History] Past Medical History HEENT History: Reports: Hard of Hearing, Impaired Vision Other HEENT History: Glasses, 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, color blindness, chronic tinnitus Cardiovascular History: Reports: Arrhythmia, High Cholesterol, Hypertension, Other (See Below) Other Cardiovascular History: Sinus Tachycardia Respiratory History: Reports: COPD, Sleep Apnea Other Respiratory History: Patient unable to tolerate CPAP Gastrointestinal History: Reports: GERD Genitourinary History: Reports: Other (See Below) Other Genitourinary History: Erectile dysfunction Musculoskeletal History: Reports: Arthritis, Back Pain, Chronic, Neck Pain, Chronic, Osteoarthritis Neurological History: Reports: Headaches, Chronic, Migraines Psychiatric History: Reports: None Endocrine/Metabolic History: Reports: Diabetes, Type II, Obesity/BMI 30+ Other Endocrine/Metabolic History: Testosterone deficiency, hypoalbuminemia Hematologic History: Reports: None Immunologic History: Reports: None Oncologic (Cancer) History: Reports: None Dermatologic History: Reports: None - Infectious Disease History Infectious Disease History: Reports: Chicken Pox - Past Surgical History Head Surgeries/Procedures: Reports: None HEENT Surgical History: Reports: Adenoidectomy, Oral Surgery, Tonsillectomy, Other (See Below) Other HEENT Surgeries/Procedures: Tonsillectomy and adenoidectomy at about age 18, [place] teeth extraction 3 at age 18 Cardiovascular Surgical History: Reports: None Respiratory Surgical History: Reports: None, Other (See Below) GI Surgical History: Reports: Appendectomy, Colon, Colonoscopy, EGD, Other (See Below) Other GI Surgeries/Procedures: Appendectomy at age 17, EGD and colonoscopy in 1991 Male Surgical History: Reports: Circumcision, Vasectomy, Other (See Below) Other Male Surgeries/Procedures: Circumcision as an infant, vasectomy at age 25 Endocrine Surgical History: Reports: None Neurological Surgical History: Reports: None Musculoskeletal Surgical History: Reports: None Oncologic Surgical History: Reports: None Dermatological Surgical History: Reports: None - Past Imaging History Past Imaging History: Reports: MRI (MRI of the right shoulder in about 2011), Sleep Study Social & Family History - Family History HEENT: Reports: None Cardiac: Reports: CAD, [place], Other (See Below) Other Cardiac Family History: Maternal uncle with [place] in his 40s, mother with CABG x4 in her 60s with history of silent MIs Respiratory: Reports: Asthma, COPD, Other (See Below) Other Respiratory Family Hisory: 3 children of asthma, maternal grandfather with COPD with history of tobacco use, father with possible COPD secondary to tobacco use GI: Reports: Colon Polyps, Pancreatitis, Other (See Below) Other GI Family History: maternal father with colonic polyps, father with history pancreatitis secondary to alcohol abuse : Reports: None OBGYN: Reports: None Musculoskeletal: Reports: None Neurological: Reports: CVA, Seizure, Other (See Below) Other Neurological Family History: paternal great grandmother with CVA at about age 92, son with seizures since age 16 secondary to football injury Psychiatric: Reports: Anxiety, Depression, Other (See Below) Other Psychiatric Family History: Father with history of alcohol abuse, anxiety , and depression with subsequent postoperative narcotic addiction Endocrine/Metabolic: Reports: Diabetes, type II, IDDM, Other (See Below) Other Endocrine/Metabolic Family History: IDDM in parents Hematologic: Reports: Anemia, Other (See Below) Other Hematologic Family History: Father with postoperative anemia Immunologic: Reports: None Dermatologic: Reports: Eczema, Other (See Below) Other Dermatologic Family History: Son with eczema Oncologic: Reports: Colon, Pancreatic, Other (See Below) Other Oncologic Family History: Paternal grandmother with fatal pancreatic cancer in her 80s, possible fatal colon cancer in maternal grandfather in his 80s, paternal grandaunt with fatal unknown type of cancer in her 60s - Tobacco Use Smoking Status *Q: Current Every Day Smoker Years of Tobacco use: 13 Packs/Tins Daily: 0.2 Used Tobacco, but Quit: No Second Hand Smoke Exposure: No - Caffeine Use Caffeine Use: Reports: Soda - Alcohol Use Days Per Week of Alcohol Use: 0 (No previous DWIs, problems with alcohol abuse, etc.) Number of Drinks Per Day: 6 (Usually beer once a month) Total Drinks Per Week: 0 - Recreational Drug Use Recreational Drug Use: No Drug Use in Last 12 Months: No - Living Situation & Occupation Living situation: Reports: (2005, 3 children), Alone 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
[2017-02-14] MEDS ORDERED: Aspirin 81 MG Tab.Chew CHEW ONE (14:54)
[2017-02-14] MEDS ORDERED: Metoprolol Tartrate 5 MG/5 ML SDV IVPUSH ONE (14:54)
[2017-02-14] MEDS ORDERED: Sodium Chloride 0.9% 10 ML Syringe FLUSH PRN (14:54)
[2017-02-14] MEDS ORDERED: Ticagrelor 90 MG Tab PO ONE (14:54)
[2017-02-14] MEDS ORDERED: Famotidine 20 MG/2 ML SDV IVPUSH ONE (14:54)
--- NOTE | 2017-02-14 14:54 | EDM.PDOC ---
ED HPI GENERAL MEDICAL PROBLEM - General Chief Complaint: Cardiovascular Problem Stated Complaint: chest pain Time Seen by Provider: 02/14/17 14:45 Source of Information: Reports: Patient, EMS, Old Records ([facility] chart/EMR). Denies: EMS Notes Reviewed (Not available) History Limitations: Reports: No Limitations - History of Present Illness INITIAL COMMENTS - FREE TEXT/NARRATIVE: The patient was brought to the emergency room via ambulance with customer loyalty representative accompaniment with initial basic ambulance transfer with subsequent intercept. EKG was conducted by the customer loyalty representative with no acute changes noted. Saline lock was started with patient also started on oxygen by the EMT. No other treatment was given in route. Note that the patient was discharged from our facility yesterday for nonspecific chest pain and hypertension with negative workup for acute NJ. The patient woke up at about 05:30 a.m. this morning and didn't feel quite right with onset of intermittent retrosternal chest pressure without radiation starting at about 10 AM this morning. The patient did continue to work with episodes of intermittent 3/10 chest pressure associated with some mild diaphoresis him a dizziness, heart flutter, and dyspnea. Symptoms have been lasting for about 10 minutes with each episode with patient symptom-free at time of arrival. He does admit to some increased anxious component at this time. The patient denies any orthostasis, orthopnea, paresthesias, recent decreased exercise tolerance, or any other anginal-type symptoms. No recent history of abdominal pain, heartburn, nausea, diarrhea, melena, gross hematochezia, or any food intolerance, including fatty foods, etc. with last bowel movement earlier this morning, which was normal. The patient also denies any recent fever, cough, wheezing, dyspnea, etc.. He does have a mild left 4/10 frontal headache similar to episodes during recent hospitalization with no visual changes, neurological deficits, etc. Note blood pressure 136/82 with pulse of 87 at 07:10 hours this morning with blood pressure 142/98 with a pulse of 100 at 1400 hrs. both at work today Onset: Today, Sudden Onset Date: 02/14/17 Onset Time: 10:00 Duration: Intermittent, Resolved Prior to Arrival, Waxing/Waning Location: Reports: Chest. Denies: Head, Face, Neck, Abdomen, Back, Pelvis, Upper Extremity, Left, Upper Extremity, Right, Lower Extremity, Left, Lower Extremity, Right, Radiates to Quality: Reports: Pressure, Same as Previous Episode Severity: Mild Improves with: Reports: None Worsens with: Reports: None Context: Reports: Other (As above) Associated Symptoms: Reports: Chest Pain, Headaches, Shortness of Breath. 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 Middle Chest Pain Score (Numeric/FACES): 3 Left Frontal Headache Pain Score (Numeric/FACES): 4 - Related Data Allergies Allergy/AdvReac Type Severity Reaction Status Date / Time No Known Allergies Allergy Verified 02/14/17 14:47 Home Meds: Home Meds Cyclobenzaprine [Flexeril] 10 mg PO TID PRN 01/10/16 [History] Sildenafil Citrate [Viagra] 50 mg PO DAILY PRN 01/10/16 [History] glipiZIDE [Glucotrol] 5 mg PO BID 01/10/16 [History] Diclofenac Sodium [Voltaren] 75 mg PO BIDMEALS 02/12/17 [History] Testosterone [Androgel] 1 applic TOP DAILY 02/12/17 [History] atorvaSTATin [Lipitor] 20 mg PO BEDTIME 02/12/17 [History] Past Medical History HEENT History: Reports: Hard of Hearing, Impaired Vision, Other (See Below). 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 Denies: Afib, Aneurysm, Blood Clots/VTE/DVT, CAD, Heart Failure, Heart Murmur, NJ, PVD Other Cardiovascular History: Near syncope on 02/12/17, Sinus Tachycardia Respiratory History: Reports: COPD, Sleep Apnea, Other (See Below). Denies: Asthma, Bronchitis, Recurrent, Intubation, Difficult, Intubation, Previous, PE, Pneumonia, Recurrent, Pneumothorax, TB Other Respiratory History: Patient unable to tolerate CPAP Gastrointestinal History: Reports: GERD. Denies: Celiac Disease, Cholelithiasis , Chronic Constipation, Chronic Diarrhea, Colon Polyp, Fecal Incontinence, Gastritis, GI Bleed, Hepatitis, Hiatal Hernia, Inflammatory Bowel Disease, Irritable Bowel Syndrome, Jaundice, Pancreatitis, PUD Genitourinary History: Reports: Other (See Below). Denies: Acute Renal Failure , BPH, Chronic Renal Insuffiency, Prostate Disorder, Renal Calculus, Retention, Urinary, STD, Urinary Incontinence Other Genitourinary History: Erectile dysfunction Musculoskeletal History: Reports: Arthritis, Back Pain, Chronic, Neck Pain, Chronic, Osteoarthritis. Denies: Amputation, Fracture, Fibromyalgia, Gout, Osteoporosis, RA, SLE Neurological History: Reports: Headaches, Chronic, Migraines. Denies: Cerebral Aneurysms, Concussion, CVA, Head Trauma, MS, Neuropathy, Peripheral, Parkinson's , Seizure, TIA Psychiatric History: Reports: Anxiety, Depression. Denies: Abuse, Victim of, ADD, ADHD, Addiction, Alzheimers Disease, Dementia, Psych Hospitalization(s), PTSD, Suicide Attempt, Suicidal Ideation Endocrine/Metabolic History: Reports: Diabetes, Type II, Obesity/BMI 30+. Denies: Diabetes, Type I, Hypothyroidism, IDDM Other Endocrine/Metabolic History: Testosterone deficiency, hypoalbuminemia Hematologic History: Reports: None. Denies: Anemia, Blood Transfusion(s) Immunologic History: Reports: None. Denies: AIDS, HIV, SLE Oncologic (Cancer) History: Reports: None. Denies: Basal Cell Carcinoma, Hodgkin's Lymphoma, Leukemia, Lymphoma, Malignant Melanoma, Non-Hodgkin's Lymphoma, Prostate, Squamous Cell Carcinoma Dermatologic History: Reports: None. Denies: Eczema, Psoriasis, Venous Stasis Dermatitis - Infectious Disease History Infectious Disease History: Reports: Chicken Pox. Denies: C-Difficile, Measles , Meningitis, Mononucleosis, MRSA, Mumps, Pertussis (Whooping Cough), RSV, Rubella, Scarlet Fever, VRE - Past Surgical History Head Surgeries/Procedures: Reports: None HEENT Surgical History: Reports: Adenoidectomy, Oral Surgery, Tonsillectomy, Other (See Below). Denies: Cataract Surgery, Eye Surgery, Laser Surgery, LASIK , Myringotomy w Tube(s), Naso-Sinus Surgery Other HEENT Surgeries/Procedures: Tonsillectomy and adenoidectomy at about age 18, [place] teeth extraction 3 at age 18 Cardiovascular Surgical History: Reports: None. Denies: Varicose, Vascular Surgery Respiratory Surgical History: Reports: None. Denies: Lung Biopsies, Thoracentesis GI Surgical History: Reports: Appendectomy, Colon, Colonoscopy, EGD, Other (See Below). Denies: Hernia, Abdominal, Hernia, Inguinal, Hernia Repair/Other, Polypectomy Other GI Surgeries/Procedures: Appendectomy at age 17, EGD and colonoscopy in 1991 Male Surgical History: Reports: Circumcision, Vasectomy, Other (See Below). Denies: TURP-Transurethral Resection of Prostate Other Male Surgeries/Procedures: Circumcision as an , vasectomy at age 25 Endocrine Surgical History: Reports: None. Denies: Thyroid Biopsy Neurological Surgical History: Reports: None. Denies: C-Spine, Discectomy, Laminectomy, Lumbar Spine, Sacral Spine, Spinal Fusion, Thoracic Spine, Vertebroplasty Musculoskeletal Surgical History: Reports: None. Denies: Arthroscopic Procedure , Carpal Tunnel, Ganglion Cyst, Joint Replacement, ORIF, Shoulder Surgery Oncologic Surgical History: Reports: None Dermatological Surgical History: Reports: None - Past Imaging History Past Imaging History: Reports: MRI (MRI of the right shoulder in about 2011), Sleep Study Social & Family History - Family History HEENT: Reports: None. Denies: Allergic Rhinitis, Cataract, Glaucoma, Macular Degeneration, Retinal Detachment Cardiac: Reports: Bypass, CAD, NJ, Other (See Below). Denies: Afib, Aneurysm, Arrhythmia, Blood Clots/VTE/DVT, Heart Failure, Heart Murmur, High Cholesterol, Hypertension, PVD/COD, Syncope Other Cardiac Family History: Maternal uncle with NJ in his 40s, mother with CABG x4 in her 60s with history of silent MIs Respiratory: Reports: Asthma, COPD, Other (See Below). Denies: PE, Pneumothorax Other Respiratory Family Hisory: 3 children of asthma, maternal grandfather with COPD with history of tobacco use, father with possible COPD secondary to tobacco use GI: Reports: Colon Polyps, Pancreatitis, Other (See Below). Denies: Celiac Disease, Cholelithiasis, GERD, GI bleed, Inflammatory Bowel Disease, Irritable Bowel Syndrome, PUD Other GI Family History: maternal father with colonic polyps, father with history pancreatitis secondary to alcohol abuse : Reports: None. Denies: Dialysis, Renal Calculus, Renal Disease/ Insufficiency OBGYN: Reports: None. Denies: Endometriosis, Recurrent Spontaneous Musculoskeletal: Reports: None. Denies: Arthritis, Gout, Osteoarthritis, RA, SLE Neurological: Reports: CVA, Seizure, Other (See Below). Denies: Alzheimers Disease, Cerebral Aneurysms, Dementia, Migraines, MS, Parkinson's, TIA Other Neurological Family History: paternal great grandmother with CVA at about age 92, son with seizures since age 16 secondary to football injury Psychiatric: Reports: Anxiety, Depression, Other (See Below). Denies: Abuse, Victim of, ADD, ADHD, Psych Hospitalization(s), PTSD, Suicide Attempt Other Psychiatric Family History: Father with history of alcohol abuse, anxiety , and depression with subsequent postoperative narcotic addiction Endocrine/Metabolic: Reports: Diabetes, type II, IDDM, Other (See Below). Denies: Diabetes, Type I, Hypothyroidism Other Endocrine/Metabolic Family History: IDDM in parents Hematologic: Reports: Anemia, Other (See Below). Denies: SLE Other Hematologic Family History: Father with postoperative anemia Immunologic: Reports: None. Denies: AIDS, HIV, SLE Dermatologic: Reports: Eczema, Other (See Below). Denies: Psoriasis Other Dermatologic Family History: Son with eczema Oncologic: Reports: Colon, Pancreatic, Other (See Below). Denies: Leukemia, Lymphoma, Prostate, Skin Other Oncologic Family History: Paternal grandmother with fatal pancreatic cancer in her 80s, possible fatal colon cancer in maternal grandfather in his 80s, paternal grandaunt with fatal unknown type of cancer in her 60s - Tobacco Use Smoking Status *Q: Current Every Day Smoker Tobacco Use Within Last Twelve Months: Snuff/Dip Years of Tobacco use: 13 Packs/Tins Daily: 0.2 (Started chewing tobacco at age 34 with average use of one can per week) Used Tobacco, but Quit: No Smoking Cessation Information Provided To Patient: Yes (Patient received tobacco cessation information and hospital discharge on 02/13/17) Second Hand Smoke Exposure: No Second Hand Smoke Education Provided: No - Caffeine Use Caffeine Use: Reports: Soda (34 sodas per day). Denies: Coffee, Energy Drinks , Other - Alcohol Use Alcohol Use History: Yes Days Per Week of Alcohol Use: 0 (No previous DWIs, problems with alcohol abuse, etc.) Number of Drinks Per Day: 6 (Usually beer once a month) Total Drinks Per Week: 0 Alcohol Use Frequency: Socially - Recreational Drug Use Recreational Drug Use: No Drug Use in Last 12 Months: No Recreational Drug Type: Denies: Amphetamines (Speed), Cocaine, Heroin, Inhalants (Glues, Solvents, Aerosols), LSD (Acid), Marijuana/Hashish, Methamphetamine, Morphine - Living Situation & Occupation Living situation: Reports: (2005, 3 children), Alone 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 Denies: Fever, Chills, Malaise, Weakness , Fatigue, Night Sweats, Decreased Appetite, Weight Loss, Weight Gain HEENT: Reports: Glasses. Denies: Dental Pain, Ear Pain, Eye Pain, Hearing Loss , Rhinitis, Throat Pain, Throat Swelling, Vertigo, Vision Change Respiratory: Reports: Shortness of Breath. Denies: Wheezing, Pleuritic Chest Pain, Cough Cardiovascular: Reports: Chest Pain, Blood Pressure Problem (Since hospitalization as above), Dyspnea on Exertion, Lightheadedness, Palpitations. Denies: Claudication, Edema, Orthopnea, PND, Syncope Endocrine: Reports: No Symptoms. Denies: Fatigue, High Glucose GI/Abdominal: Reports: No Symptoms. Denies: Abdominal Pain, Anorexia, Black Stool, Bloody Stool, Constipation, Diarrhea, Decreased Appetite, Difficulty Swallowing, Distension, Flatus, Hematemesis, Hematochezia, Melena, Nausea, Stool Incontinence, Vomiting : Reports: No Symptoms. Denies: Discharge, Dysuria, Flank Pain, Frequency, Hematuria, Incontinence, Pain, Urgency, Urinary Retention Musculoskeletal: Reports: No Symptoms. Denies: Neck Pain, Shoulder Pain, Arm Pain, Back Pain, Leg Pain Skin: Reports: Diaphoresis. Denies: Cyanosis, Jaundice, Mottled, Pallor, Bruising, Wound Neurological: Reports: Dizziness, Headache. Denies: Confusion, Numbness, Paresthesia, Seizure, Tingling, Tremors, Difficulty Walking, Weakness, Change in Speech Psychiatric: Reports: Anxiety, Depression. Denies: Agitation, Confusion, Cravings, Hallucinations, Mood Lability, Suicidal Ideation Hematologic/Lymphatic: Reports: No Symptoms Immunologic: Reports: No Symptoms ED EXAM, GENERAL - Physical Exam Exam: See Below Exam Limited By: No Limitations General Appearance: Alert, WD/WN, No Apparent Distress, Anxious (Moderate) Eye Exam: Bilateral Eye: EOMI, Normal Fundi (Patient is wearing glasses ), Normal Inspection (No nystagmus), PERRL Ears: Normal External Exam, Normal Canal, Hearing Grossly Normal, Normal TMs Nose: Normal Inspection, Normal Mucosa, No Blood Throat/Mouth: Normal Inspection, Normal Lips, Normal Teeth, Normal Gums, Normal Oropharynx, Normal Voice, No Airway Compromise, Other (Chewing tobacco in oral cavity). No: Dysphagia, Inflammation, Perioral Cyanosis Head: Atraumatic, Normocephalic. No: Facial Swelling, Facial Tenderness, Sinus Tenderness Neck: Normal Inspection, Supple, Non-Tender, Full Range of Motion. No: Carotid Bruit, Lymphadenopathy (L), Lymphadenopathy (R), Thyromegaly Respiratory/Chest: No Respiratory Distress, Lungs Clear, Normal Breath Sounds, No Accessory Muscle Use, Chest Non-Tender. No: Pleural Rub, Retractions Cardiovascular: Normal Peripheral Pulses, Regular Rate, Rhythm, No Edema, No Gallop, No JVD, No Murmur, No Rub. No: Gallop/S3, Gallop/S4, Friction Rub Peripheral Pulses: 2+: Radial (L), Radial (R), Dorsalis Pedis (L), Dorsalis Pedis (R) GI/Abdominal: Normal Bowel Sounds, Soft, Non-Tender, No Organomegaly, No Distention, No Abnormal Bruit, No Mass, Pelvis Stable, Other (obese) (Male) Exam: Deferred Rectal (Males) Exam: Deferred Extremities: Normal Inspection, Normal Range of Motion, Non-Tender, No Pedal Edema, Normal Capillary Refill. No: Erin's Sign Neurological: Alert, Oriented, CN II-XII Intact, Normal Cognition, Normal Gait, Normal Reflexes (Negative Babinski's), No Motor/Sensory Deficits Psychiatric: Anxious (Moderate), Depressed Mood (Mild with adequate eye contact) Skin Exam: Warm, Dry, Intact, Normal Color, No Rash. No: Diaphoretic, Ecchymosis, Wound/Incision Lymphatic: No Adenopathy EKG INTERPRETATION EKG Date: 02/14/17 Time: 14:53 Rhythm: NSR Rate (Beats/Min): 86 [place]: Normal (Neutral) P-Wave: Enlarged (Mild diffuse biphasic with resolution of poor R-wave progression) QRS: Normal (QRS interval 0.08 seconds representing repolarization changes with resolution of previous T-wave inversion in lead V1) ST-T: Normal QT: Normal KS/PQ Interval: 0.18 seconds Comparison: Change From Previous EKG (As above since 02/13/17) EKG Interpretation Comments: 1. No acute ischemic changes 2. Repolarization changes Course - Vital Signs Last Recorded V/S: Last Vital Signs Temp 37.2 C 02/14/17 15:18 Pulse 72 02/14/17 16:35 Resp 17 02/14/17 16:35 BP 135/90 02/14/17 16:35 Pulse Ox 100 02/14/17 16:35 Vital Signs - 24 hr 02/14/17 02/14/17 02/14/17 14:45 14:46 14:59 Temperature [ 37.2 C Temporal] Pulse, Peripheral Pulse, 98 76 Peripheral [ Right Pulse Oximetry] Respiratory 14 14 Rate Blood Pressure Blood Pressure 150/99 H 139/95 H [Left Upper Arm ] O2 Sat by Pulse 97 100 Oximetry O2 Sat by Pulse 100 Oximetry [ Nasal Cannula] 02/14/17 02/14/17 02/14/17 15:02 15:18 15:33 Temperature [ 37.2 C Temporal] Pulse, 84 Peripheral Pulse, 75 71 Peripheral [ Right Pulse Oximetry] Respiratory 12 16 Rate Blood Pressure 150/99 H Blood Pressure 132/94 H 130/96 H [Left Upper Arm ] O2 Sat by Pulse 98 98 Oximetry O2 Sat by Pulse Oximetry [ Nasal Cannula] 02/14/17 02/14/17 02/14/17 15:50 16:00 16:18 Temperature [ Temporal] Pulse, Peripheral Pulse, 77 75 71 Peripheral [ Right Pulse Oximetry] Respiratory 17 18 13 Rate Blood Pressure Blood Pressure 144/90 H 133/85 135/88 [Left Upper Arm ] O2 Sat by Pulse 97 98 99 Oximetry O2 Sat by Pulse Oximetry [ Nasal Cannula] 02/14/17 16:35 Temperature [ Temporal] Pulse, Peripheral Pulse, 72 Peripheral [ Right Pulse Oximetry] Respiratory 17 Rate Blood Pressure Blood Pressure 135/90 [Left Upper Arm ] O2 Sat by Pulse 100 Oximetry O2 Sat by Pulse Oximetry [ Nasal Cannula] - Orders/Labs/Meds Orders: Active Orders 24 hr Category Date Time Status Cardiac Monitoring [RC] . DIRECTED Care 02/14/17 14:54 Active EKG Documentation Completion [RC] ASDIRECTED Care 02/14/17 14:55 Active Oxygen Therapy, ED [RC] CONTINUOUS Care 02/14/17 14:54 Active Peripheral IV Care [RC] . DIRECTED Care 02/14/17 14:55 Active Pulse Oximetry [RC] CONTINUOUS Care 02/14/17 14:54 Active Up With Assistance [RC] PFP Care 02/14/17 14:54 Active Vital Signs [RC] PFP Care 02/14/17 14:54 Active Nothing per Oral Now Diet [DIET] Diet 02/14/17 Breakfast Active Chest 1V Frontal [CR] Stat Exams 02/14/17 14:54 Taken Morphine Med 02/14/17 15:23 Once 1 mg IVPUSH ONETIME ONE Sodium Chloride 0.9% [Saline Flush] Med 02/14/17 14:54 Active 10 ml FLUSH ASDIRECTED PRN Obtain Past Medical Record [OM.PC] Urgent Oth 02/14/17 14:54 Active Peripheral IV Insertion Adult [OM.PC] Stat Oth 02/14/17 14:54 Ordered Resuscitation Status Stat Resus Stat 02/14/17 14:54 Ordered Medication Orders Morphine Sulfate (Morphine) 1 mg IVPUSH ONETIME ONE Stop: 02/15/17 15:24 Last Admin: 02/14/17 15:29 Dose: 1 mg Sodium Chloride (Saline Flush) 10 ml FLUSH ASDIRECTED PRN PRN Reason: Keep Vein Open Last Admin: 02/14/17 15:12 Dose: 10 ml Labs: Laboratory Tests 02/14/17 02/14/17 02/14/17 Range/Units 15:00 15:00 15:00 WBC 7.3 (4.0-10.2) K/uL RBC 5.57 H (4.33-5.41) M/uL Hgb 17.0 H (13.1-16.8) g/dL Hct 49.5 H (39.0-49.0) % MCV 88.9 (84.0-98.0) fL MCH 30.5 (28.2-33.3) pg MCHC 34.3 (31.7-36.0) g/dL RDW 12.7 (11.2-14.1) % Plt Count 253 (150-350) K/uL Neut % (Auto) 49.8 (45.0-80.0) % Lymph % (Auto) 37.7 (10.0-50.0) % [place] % (Auto) 9.2 (2.0-14.0) % Eos % (Auto) 2.9 (0.0-5.0) % Baso % (Auto) 0.4 (0.0-2.0) % Neut # (Auto) 3.62 (1.40-7.00) K/uL Lymph # (Auto) 2.74 (0.50-3.50) K/uL [place] # (Auto) 0.67 (0.00-1.00) K/uL Eos # (Auto) 0.21 (0.00-0.50) K/uL Baso # (Auto) 0.03 (0.00-0.20) K/uL PT 10.7 (9.8-11.7) SEC INR 1.0 APTT 25.9 (22.1-29.8) SEC D-Dimer, Quantitative < 100 (0-400) ng/mL Sodium (136-145) mmol/L Potassium (3.5-5.1) mmol/L Chloride (98-107) mmol/L Carbon Dioxide (21.0-32.0) mmol/L BUN (7-18) mg/dL Creatinine (0.51-1.17) mg/dL Est Cr Clr Drug Dosing mL/min Estimated GFR (MDRD) mL/min Glucose (74-106) mg/dL Lactic Acid (0.4-2.0) mmol/L Uric Acid (2.6-7.2) mg/dL Calcium (8.5-10.1) mg/dL Magnesium (1.8-2.4) mg/dL Total Bilirubin (0.2-1.0) mg/dL AST (15-37) U/L ALT (12-78) U/L Alkaline Phosphatase (46-116) IU/L Creatine Kinase (26-308) U/L Creatine Kinase Index (0.0-2.5) % CK-MB (CK-2) (0.00-3.60) ng/mL Troponin I (0.000-0.056) ng/mL NT-Pro-B Natriuret Pep (0-125) pg/mL Total Protein (6.4-8.2) g/dL Albumin (3.4-5.0) g/dL TSH, Ultra Sensitive (0.358-3.740) mIU/mL 02/14/17 02/14/17 Range/Units 15:00 15:00 WBC (4.0-10.2) K/uL RBC (4.33-5.41) M/uL Hgb (13.1-16.8) g/dL Hct (39.0-49.0) % MCV (84.0-98.0) fL MCH (28.2-33.3) pg MCHC (31.7-36.0) g/dL RDW (11.2-14.1) % Plt Count (150-350) K/uL Neut % (Auto) (45.0-80.0) % Lymph % (Auto) (10.0-50.0) % [place] % (Auto) (2.0-14.0) % Eos % (Auto) (0.0-5.0) % Baso % (Auto) (0.0-2.0) % Neut # (Auto) (1.40-7.00) K/uL Lymph # (Auto) (0.50-3.50) K/uL [place] # (Auto) (0.00-1.00) K/uL Eos # (Auto) (0.00-0.50) K/uL Baso # (Auto) (0.00-0.20) K/uL PT (9.8-11.7) SEC INR APTT (22.1-29.8) SEC D-Dimer, Quantitative (0-400) ng/mL Sodium 142 (136-145) mmol/L Potassium 4.0 (3.5-5.1) mmol/L Chloride 106 (98-107) mmol/L Carbon Dioxide 27.6 (21.0-32.0) mmol/L BUN 17 (7-18) mg/dL Creatinine 1.04 (0.51-1.17) mg/dL Est Cr Clr Drug Dosing 90.67 mL/min Estimated GFR (MDRD) > 60 mL/min Glucose 81 (74-106) mg/dL Lactic Acid 1.1 (0.4-2.0) mmol/L Uric Acid 4.9 (2.6-7.2) mg/dL Calcium 9.0 (8.5-10.1) mg/dL Magnesium 1.9 (1.8-2.4) mg/dL Total Bilirubin 0.3 (0.2-1.0) mg/dL AST 29 (15-37) U/L ALT 62 (12-78) U/L Alkaline Phosphatase 45 L (46-116) IU/L Creatine Kinase 371 H (26-308) U/L Creatine Kinase Index 1.0 (0.0-2.5) % CK-MB (CK-2) 3.60 (0.00-3.60) ng/mL Troponin I 0.030 (0.000-0.056) ng/mL NT-Pro-B Natriuret Pep 5 (0-125) pg/mL Total Protein 7.7 (6.4-8.2) g/dL Albumin 4.1 (3.4-5.0) g/dL TSH, Ultra Sensitive 2.925 (0.358-3.740) mIU/mL Meds: Medications Generic Name Dose Route Start Last Admin Trade Name Freq PRN Reason Stop Dose Admin Morphine Sulfate 1 mg 02/14/17 15:23 02/14/17 15:29 Morphine IVPUSH 02/15/17 15:24 1 mg ONETIME ONE Administration Sodium Chloride 10 ml 02/14/17 14:54 02/14/17 15:12 Saline Flush FLUSH 10 ml ASDIRECTED PRN Administration Keep Vein Open Discontinued Medications Generic Name Dose Route Start Last Admin Trade Name Freq PRN Reason Stop Dose Admin Aspirin 324 mg 02/14/17 14:54 02/14/17 15:01 Aspirin CHEW 02/14/17 14:55 324 mg ONETIME ONE Administration Famotidine 40 mg 02/14/17 14:54 02/14/17 15:03 Pepcid IVPUSH 02/14/17 14:55 40 mg ONETIME ONE Administration Metoprolol Tartrate 2.5 mg 02/14/17 14:54 02/14/17 15:02 Lopressor IVPUSH 02/14/17 14:55 2.5 mg ONETIME ONE Administration Ondansetron HCl 4 mg 02/14/17 15:23 02/14/17 15:29 Zofran IVPUSH 02/14/17 15:24 4 mg ONETIME ONE Administration Ticagrelor 180 mg 02/14/17 14:54 02/14/17 15:02 Brilinta PO 02/14/17 14:55 180 mg ONETIME ONE Administration - Radiology Interpretation Free Text/Narrative:: Psychological Aide showed initial sinus rhythm in the 80s to 90s with improvement to the 70s after medical treatment in the emergency room. No ectopy or arrhythmia Chest x-ray, portable, shows somewhat poor inspiratory film with evidence of moderate COPD changes including probable mild centralized CHF and/or pulmonary hypertension. No pneumothorax, infiltrates, etc. Moderate cardiomegaly and prominence of the proximal aortic arch Departure - Departure Time of Disposition: 16:40 Disposition: DC/Tfer to Acute Hospital 02 Condition: Good Clinical Impression: Peptic reflux disease, Tobacco abuse counseling, Elevated CK, Hypoalbuminemia, Near syncope Hypertension Qualifiers: Hypertension type: essential hypertension Qualified Code(s): I10 - Essential ( primary) hypertension Hyperlipidemia Qualifiers: Hyperlipidemia type: mixed hyperlipidemia Qualified Code(s): E78.2 - Mixed hyperlipidemia Diabetes mellitus Qualifiers: Diabetes mellitus type: type 2 Diabetes mellitus complication status: without complication Diabetes mellitus residential insulin use: without residential use Qualified Code(s): E11.9 - Type 2 diabetes mellitus without complications COPD (chronic obstructive pulmonary disease) Qualifiers: COPD type: COPD with acute lower respiratory infection Qualified Code(s): J44.0 - Chronic obstructive pulmonary disease with acute lower respiratory infection Chest pain Qualifiers: Chest pain type: unspecified Qualified Code(s): R07.9 - Chest pain, unspecified - Discharge Information Referrals: Garrett Bright PA [Primary Care Provider] - Forms: ED Department Discharge, Interfacility Transfer [facility] - Problem List & Annotations (1) Chest pain SNOMED Code(s): 62413224 Code(s): R07.9 - CHEST PAIN, UNSPECIFIED Status: Acute Priority: High Current Visit: Yes Onset Date: 02/14/17 Annotation/Comment:: Chest pain protocol initiated immediately on patient's arrival to the emergency room. IV morphine given both as cardiac protection and as treatment for his headache. Note recent hospital discharge from this facility yesterday secondary to borderline hypertensive crisis, near syncope, etc. with negative workup for acute [place] at that time. Secondary to recent hospitalizations and refractory symptoms patient does need further immediate cardiac consultation and evaluation. Telephone consultation at 15:[address] James, hospitalist at [facility] in [place], who does agree to accept the patient for direct admission, cardiology consultation, etc. No further treatment recommendations given. Ambulance transfer with customer loyalty representative accompaniment. Patient counseled on possible future workup including Cardiolite stress test versus catheterization, etc. Some delay in hospital transfer secondary to bed availability without sequelae. Intermittent recurrence of patient's chest discomfort usually lasting for only seconds with patient chest pain-free at time of transfer Qualifiers: Chest pain type: unspecified Qualified Code(s): R07.9 - Chest pain, unspecified (2) Diabetes mellitus SNOMED Code(s): 64187048 Code(s): E11.9 - TYPE 2 DIABETES MELLITUS WITHOUT COMPLICATIONS Status: Acute Priority: High Current Visit: Yes Annotation/Comment:: Stable by history. Excellent glycosylated hemoglobin of 6.0% yesterday in our hospital Qualifiers: Diabetes mellitus type: type 2 Diabetes mellitus complication status: without complication Diabetes mellitus emt intermediate insulin use: without residential use Qualified Code(s): E11.9 - Type 2 diabetes mellitus without complications (3) Elevated CK SNOMED Code(s): 666183860 Code(s): R74.8 - ABNORMAL LEVELS OF OTHER SERUM ENZYMES Status: Acute Priority: High Current Visit: Yes Onset Date: 02/12/17 Annotation/Comment: : CK and CK-MB elevation likely secondary to physical activity and/or current statin therapy with no symptoms at this time. Note normal cardiac index including during recent hospitalization. Unfortunately the patient was not discharged on Coenzyme Q10, which was initiated during recent hospitalization. The patient will need a water-soluble form of this preparation. (4) Hypoalbuminemia SNOMED Code(s): 302214515 Code(s): E88.09 - [facility] DISORDERS OF PLASMA-PROTEIN METABOLISM, NEC Status: Acute Priority: Medium Current Visit: Yes Annotation/Comment:: Close follow-up with regular provider with patient to use Glucerna supplements for the time being (5) Near syncope SNOMED Code(s): 899151137 Code(s): R55 - SYNCOPE AND COLLAPSE Status: Chronic Priority: Medium Current Visit: Yes Onset Date: 02/12/17 Annotation/Comment:: Recent near syncope with recent hospitalization as above with no recurrence since hospital discharge. (6) COPD (chronic obstructive pulmonary disease) SNOMED Code(s): 76302488 Code(s): J44.9 - CHRONIC OBSTRUCTIVE PULMONARY DISEASE, UNSPECIFIED Status : Chronic Priority: Medium Current Visit: Yes Annotation/Comment:: Stable by history with no recent fever or bronchitic type symptoms Qualifiers: COPD type: COPD with acute lower respiratory infection Qualified Code(s): J44.0 - Chronic obstructive pulmonary disease with acute lower respiratory infection (7) Hyperlipidemia SNOMED Code(s): 21199646 Code(s): E78.5 - HYPERLIPIDEMIA, UNSPECIFIED Status: Chronic Priority: Medium Current Visit: Yes Annotation/Comment:: Excellent lipid profile on during recent hospitalization. Continue current medical therapy Qualifiers: Hyperlipidemia type: mixed hyperlipidemia Qualified Code(s): E78.2 - Mixed hyperlipidemia (8) Hypertension SNOMED Code(s): 65901766 Code(s): I10 - ESSENTIAL (PRIMARY) HYPERTENSION Status: Chronic Priority : Medium Current Visit: Yes Annotation/Comment:: Blood pressures continue to be somewhat labile. He was discharged on lisinopril 5 mg every afternoon yesterday, however note aggressive therapy was needed during recent hospitalization including IV Vasotec, high-dose oral lisinopril, and additional IV and oral ornny therapy. Continue to observe closely by accepting providers Qualifiers: Hypertension type: essential hypertension Qualified Code(s): I10 - Essential (primary) hypertension (9) Osteoarthritis SNOMED Code(s): 786744807 Code(s): M19.90 - UNSPECIFIED OSTEOARTHRITIS, UNSPECIFIED SITE Status: Chronic Priority: Medium Current Visit: No Annotation/Comment:: Stable by history with no myalgias, muscle weakness, etc. despite CPK elevation as above Qualifiers: Osteoarthritis location: multiple joints Osteoarthritis type: primary Qualified Code(s): M15.0 - Primary generalized (osteo)arthritis (10) Peptic reflux disease SNOMED Code(s): 76806852 Code(s): K21.9 - GASTRO-ESOPHAGEAL REFLUX DISEASE WITHOUT ESOPHAGITIS Status: Chronic Priority: Medium Current Visit: Yes Annotation/Comment:: Stable by history. IV Pepcid given as GI prophylaxis in the emergency room (11) Tobacco abuse counseling SNOMED Code(s): 480027194, 716482111 Code(s): Z71.6 - TOBACCO ABUSE COUNSELING Status: Chronic Priority: Medium Current Visit: Yes Annotation/Comment:: Patient was once again counseled on the use of Nicorette gum with tobacco cessation strongly encouraged. Tobacco cessation information was provided at yesterday's hospital discharge. (12) Polycythemia SNOMED Code(s): 973933557 Code(s): D75.1 - SECONDARY POLYCYTHEMIA Status: Acute Priority: Medium Current Visit: Yes Onset Date: 02/14/17 Annotation/Comment:: Likely secondary to COPD and current tobacco use. Observe for now - Problem List Review Problem List Initiated/Reviewed/Updated: Yes - My Orders Last 24 Hours: My Active Orders 02/14/17 14:54 Cardiac Monitoring [RC] . DIRECTED Oxygen Therapy, ED [RC] CONTINUOUS Pulse Oximetry [RC] CONTINUOUS Up With Assistance [RC] PFP Vital Signs [RC] PFP Chest 1V Frontal [CR] Stat Sodium Chloride 0.9% [Saline Flush] 10 ml FLUSH ASDIRECTED PRN Obtain Past Medical Record [OM.PC] Urgent Peripheral IV Insertion Adult [OM.PC] Stat Resuscitation Status Stat 02/14/17 14:55 EKG Documentation Completion [RC] ASDIRECTED Peripheral IV Care [RC] . DIRECTED 02/14/17 15:23 Morphine 1 mg IVPUSH ONETIME ONE 02/14/17 Breakfast Nothing per Oral Now Diet [DIET] - Assessment/Plan Last 24 Hours: My Active Orders 02/14/17 14:54 Cardiac Monitoring [RC] . DIRECTED Oxygen Therapy, ED [RC] CONTINUOUS Pulse Oximetry [RC] CONTINUOUS Up With Assistance [RC] PFP Vital Signs [RC] PFP Chest 1V Frontal [CR] Stat Sodium Chloride 0.9% [Saline Flush] 10 ml FLUSH ASDIRECTED PRN Obtain Past Medical Record [OM.PC] Urgent Peripheral IV Insertion Adult [OM.PC] Stat Resuscitation Status Stat 02/14/17 14:55 EKG Documentation Completion [RC] ASDIRECTED Peripheral IV Care [RC] . DIRECTED 02/14/17 15:23 Morphine 1 mg IVPUSH ONETIME ONE 02/14/17 Breakfast Nothing per Oral Now Diet [DIET] Assessment:: As above Plan: As above. Extensive precautions were given to the patient, who is in agreement with the treatment plan. Ambulance transfer with customer loyalty representative accompaniment
[2017-02-14] MEDS ORDERED: Morphine 10 MG/ML Syringe IVPUSH ONE (15:23)
[2017-02-14] MEDS ORDERED: Ondansetron 4 MG/2 ML SDV IVPUSH ONE (15:23)
[2017-02-14 15:39] LABS: CHLORIDE,CL 106 mmol/L (98-107); SODIUM,NA 142 mmol/L (136-145)
[2017-02-14 16:45] VITALS: BP 135/90
== END 2017-02-14 16:40 ==
LOC: LL.ED 14:44
DX: K21.9 Gastro-esophageal reflux disease without esophagitis (principal); R55 Syncope and collapse; I10 Essential (primary) hypertension; E78.2 Mixed hyperlipidemia; J44.0 Chronic obstructive pulmonary disease with (acute) lower respiratory infection; E11.9 Type 2 diabetes mellitus without complications; R74.8 Abnormal levels of other serum enzymes; F17.210 Nicotine dependence, cigarettes, uncomplicated; Z79.899 Other long term (current) drug therapy; Z71.6 Tobacco abuse counseling
CPT/HCPCS: 36415; 71010; 80053; 82550; 82553; 83605; 83735; 83880; 84443; 84484; 84550; 85025; 85379; 85610; 85730; 93005; 96374; 96375; 99285; A9270; J2270; J2405; J7050; J3490; S0028

== ENCOUNTER 2020-05-31 13:55 | Emergency (ER) | payer OTHER, BC ==
--- NOTE | 2020-05-31 14:20 | EDM.PDOC ---
ED HPI GENERAL MEDICAL PROBLEM - General Chief Complaint: General Stated Complaint: post Covid Shot chest pain Time Seen by Provider: 05/31/20 14:05 Source of Information: Reports: Patient History Limitations: Reports: No Limitations - History of Present Illness INITIAL COMMENTS - FREE TEXT/NARRATIVE: Pt with symptoms after Covid shot today Body aches, WATKINS, chest pain, SOB ques tionable fever All began after 1st Covid shot Onset: Today, Gradual Duration: Getting Worse Location: Reports: Generalized Quality: Reports: Ache Context: Reports: Other (Covid vaccine) - Related Data Allergies Allergy/AdvReac Type Severity Reaction Status Date / Time bupropion Allergy Other Verified 05/31/20 14:03 codeine Allergy Nausea and Verified 05/31/20 14:03 Vomiting diclofenac Allergy Hypertensio Verified 05/31/20 14:03 n Home Meds: Home Meds Testosterone [Androgel] 1 applic TOP DAILY 02/12/17 [History] atorvaSTATin [Lipitor] 20 mg PO BEDTIME 02/12/17 [History] Lisinopril 2.5 mg PO BEDTIME 02/14/17 [History] Cetirizine HCl [Zyrtec] 10 mg PO DAILY 12/24/19 [History] DULoxetine HCl [Cymbalta] 90 mg PO DAILY 12/24/19 [History] Etodolac 500 mg PO BID 12/24/19 [History] Clyde-3 Fatty Acids/Fish Oil [Fish Oil 1,000 mg Capsule] 1 gm PO BEDTIME 12/24/19 [History] metFORMIN HCl [Metformin HCl ER] 1,000 mg PO BID 12/24/19 [History] Omeprazole 20 mg PO ACBREAKFAST #30 cap.sr 12/25/19 [Rx] Acetaminophen 650 mg PO Q4H PRN 02/12/20 [History] Empagliflozin [Jardiance] 10 mg PO DAILY 02/12/20 [History] Gabapentin [Neurontin] 100 mg PO TID PRN 02/12/20 [History] Amitriptyline [Elavil] 20 mg PO BEDTIME 05/31/20 [History] Dicyclomine [Bentyl] 10 mg PO BID 05/31/20 [History] Past Medical History HEENT History: Reports: Hard of Hearing, Impaired Vision, Other (See Below) Other HEENT History: Glasses, 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, color blindness, chronic tinnitus Cardiovascular History: Reports: Arrhythmia, High Cholesterol, Hypertension, Syncope, Other (See Below) Other Cardiovascular History: Near syncope on 02/12/17, Sinus Tachycardia Respiratory History: Reports: COPD, Sleep Apnea, Other (See Below) Other Respiratory History: Patient unable to tolerate CPAP Gastrointestinal History: Reports: GERD Genitourinary History: Reports: Other (See Below) Other Genitourinary History: Erectile dysfunction Musculoskeletal History: Reports: Arthritis, Back Pain, Chronic, Neck Pain, Chronic, Osteoarthritis, Other (See Below) Other Musculoskeletal History: bone spurs in feet Neurological History: Reports: Headaches, Chronic, Migraines Psychiatric History: Reports: Anxiety, Depression Endocrine/Metabolic History: Reports: Diabetes, Type II, Obesity/BMI 30+ Other Endocrine/Metabolic History: Testosterone deficiency, hypoalbuminemia Hematologic History: Reports: None Immunologic History: Reports: None Oncologic (Cancer) History: Reports: None Dermatologic History: Reports: None - Infectious Disease History Infectious Disease History: Reports: Chicken Pox - Past Surgical History Head Surgeries/Procedures: Reports: None HEENT Surgical History: Reports: Adenoidectomy, Oral Surgery, Tonsillectomy, Other (See Below) Other HEENT Surgeries/Procedures: Tonsillectomy and adenoidectomy at about age 18, [place] teeth extraction 3 at age 18 Cardiovascular Surgical History: Reports: None Respiratory Surgical History: Reports: None GI Surgical History: Reports: Appendectomy, Colonoscopy, EGD, Other (See Below) Other GI Surgeries/Procedures: Appendectomy at age 17, EGD and colonoscopy in 1991 Male Surgical History: Reports: Circumcision, Vasectomy, Other (See Below) Other Male Surgeries/Procedures: Circumcision as an infant, vasectomy at age 25 Endocrine Surgical History: Reports: None Neurological Surgical History: Reports: None Musculoskeletal Surgical History: Reports: None Oncologic Surgical History: Reports: None Dermatological Surgical History: Reports: None - Past Imaging History Past Imaging History: Reports: MRI (MRI of the right shoulder in about 2011), Sleep Study Social & Family History - Family History Family Medical History: No Pertinent Family History HEENT: Reports: None Cardiac: Reports: Bypass, CAD, PA, Other (See Below) Other Cardiac Family History: Maternal uncle with PA in his 40s, mother with CABG x4 in her 60s with history of silent MIs Respiratory: Reports: Asthma, COPD, Other (See Below) Other Respiratory Family Hisory: 3 children of asthma, maternal grandfather with COPD with history of tobacco use, father with possible COPD secondary to tobacco use GI: Reports: Colon Polyps, Pancreatitis, Other (See Below) Other GI Family History: maternal father with colonic polyps, father with history pancreatitis secondary to alcohol abuse : Reports: None OBGYN: Reports: None Musculoskeletal: Reports: None Neurological: Reports: CVA, Seizure, Other (See Below) Other Neurological Family History: paternal great grandmother with CVA at about age 92, son with seizures since age 16 secondary to football injury Psychiatric: Reports: Anxiety, Depression, Other (See Below) Other Psychiatric Family History: Father with history of alcohol abuse, anxiety, and depression with subsequent postoperative narcotic addiction Endocrine/Metabolic: Reports: Diabetes, type II, IDDM, Other (See Below) Other Endocrine/Metabolic Family History: IDDM in parents Hematologic: Reports: Anemia, Other (See Below) Other Hematologic Family History: Father with postoperative anemia Immunologic: Reports: None Dermatologic: Reports: Eczema, Other (See Below) Other Dermatologic Family History: Son with eczema Oncologic: Reports: Colon, Pancreatic, Other (See Below) Other Oncologic Family History: Paternal grandmother with fatal pancreatic cancer in her 80s, possible fatal colon cancer in maternal grandfather in his 80s, paternal grandaunt with fatal unknown type of cancer in her 60s - Caffeine Use Caffeine Use: Reports: Soda - Living Situation & Occupation Living situation: Reports: (2004, 3 children), Alone 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[employer]) ED ROS GENERAL - Review of Systems Review Of Systems: See Below Constitutional: Reports: Malaise, Weakness Respiratory: Reports: Shortness of Breath Cardiovascular: Reports: Chest Pain GI/Abdominal: Reports: No Symptoms ED EXAM, GENERAL - Physical Exam Exam: See Below Exam Limited By: No Limitations General Appearance: Alert, WD/WN, No Apparent Distress Throat/Mouth: Normal Oropharynx Neck: Supple Respiratory/Chest: Lungs Clear Cardiovascular: Regular Rate, Rhythm GI/Abdominal: Soft, Non-Tender Extremities: Normal Inspection Neurological: Alert, Oriented Psychiatric: Normal Affect, Normal Mood Course - Orders/Labs/Meds Orders: Active Orders 24 hr Category Date Time Status EKG Documentation Completion [RC] ASDIRECTED Care 05/31/20 14:02 Active EKG 12 Lead [EK] Stat Ther 05/31/20 14:00 Ordered Departure - Departure Time of Disposition: 14:20 Disposition: Home, Self-Care 01 Clinical Impression: Vaccine reaction Qualifiers: Encounter type: initial encounter Qualified Code(s): T50.Z95A - Adverse effect of other vaccines and biological substances, initial encounter - Discharge Information *PRESCRIPTION DRUG MONITORING PROGRAM REVIEWED*: Not Applicable *COPY OF PRESCRIPTION DRUG MONITORING REPORT IN PATIENT PITA: Not Applicable Referrals: Sandra Payne PA-C [Primary Care Provider] - Additional Instructions: Tylenol as needed Follow up in clinic - My Orders Last 24 Hours: My Active Orders 05/31/20 14:00 EKG 12 Lead [EK] Stat 05/31/20 14:02 EKG Documentation Completion [RC] ASDIRECTED - Assessment/Plan Last 24 Hours: My Active Orders 05/31/20 14:00 EKG 12 Lead [EK] Stat 05/31/20 14:02 EKG Documentation Completion [RC] ASDIRECTED
[2020-05-31 14:44] VITALS: PULSE 78
[2020-05-31 18:20] VITALS: BP 118/91
== END 2020-05-31 14:50 | disposition home or self-care (01) ==
LOC: LL.ED 13:55
DX: R51.9 Headache, unspecified (principal); R07.9 Chest pain, unspecified; E78.00 Pure hypercholesterolemia, unspecified; I10 Essential (primary) hypertension; J44.9 Chronic obstructive pulmonary disease, unspecified; K21.9 Gastro-esophageal reflux disease without esophagitis; E11.9 Type 2 diabetes mellitus without complications; E66.9 Obesity, unspecified; Z68.32 Body mass index [BMI] 32.0-32.9, adult; Z88.6 Allergy status to analgesic agent; Z88.5 Allergy status to narcotic agent; Z88.8 Allergy status to other drugs, medicaments and biological substances; Z79.84 Long term (current) use of oral hypoglycemic drugs; T50.B95A Adverse effect of other viral vaccines, initial encounter
CPT/HCPCS: 93005; 99283; 99284-25

== ENCOUNTER 2020-09-20 14:38 | Emergency (ER) | payer OTHER, BC ==
[2020-09-20 14:51] VITALS: BP 133/89; PULSE 101
--- NOTE | 2020-09-20 14:53 | EDM.PDOC ---
ED HPI GENERAL MEDICAL PROBLEM - General Chief Complaint: Neuro Symptoms/Deficits Stated Complaint: dizzy for a year Time Seen by Provider: 09/20/20 14:50 Source of Information: Reports: Patient, Old Records ([facility] chart/EMR) History Limitations: Reports: No Limitations - History of Present Illness INITIAL COMMENTS - FREE TEXT/NARRATIVE: The patient drove himself to the emergency room via private automobile for evaluation of a 1 year history of chronic intermittent dizziness and vertigo, which [facility] [place], including [facility] table test, etc., however the patient is uncertain about his complete evaluation. No history of recent headaches, visual changes, diplopia, change in mental status, or other change in neurological status. The patient also denies any recent fever, cough, wheezing, dyspnea, etc.. The patient denies any chest pain/pressure, heart flutter, dizziness, orthostasis, orthopnea, diaphoresis, paresthesias, recent decreased exercise tolerance, or any other anginal-type symptoms. No recent history of abdominal pain, heartburn, nausea, diarrhea, melena, gross hematochezia, or any food intolerance, including fatty foods, etc.. He denies any gross hematuria, colic, or the UTI symptoms. No apparent current pain or discomfort. He also denies any known exposure to infection. Onset: Other (As above) Duration: Intermittent Location: Reports: Other (No pain) Quality: Reports: Same as Previous Episode Severity: Moderate Improves with: Reports: None Worsens with: Reports: None Context: Reports: Other (As above). Denies: Sick Contact, Trauma Associated Symptoms: Reports: No Other Symptoms. 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: Reports: Other (see below) (None) - Related Data Allergies Allergy/AdvReac Type Severity Reaction Status Date / Time bupropion Allergy Other Verified 05/31/20 14:03 codeine Allergy Nausea and Verified 05/31/20 14:03 Vomiting diclofenac Allergy Hypertensio Verified 05/31/20 14:03 n Home Meds: Home Meds Testosterone [Androgel] 1 applic TOP DAILY 02/12/17 [History] atorvaSTATin [Lipitor] 20 mg PO BEDTIME 02/12/17 [History] Lisinopril 2.5 mg PO BEDTIME 02/14/17 [History] Cetirizine HCl [Zyrtec] 10 mg PO DAILY 12/24/19 [History] DULoxetine HCl [Cymbalta] 90 mg PO DAILY 12/24/19 [History] Etodolac 500 mg PO BID 12/24/19 [History] metFORMIN HCl [Metformin HCl ER] 1,000 mg PO BID 12/24/19 [History] Omeprazole 20 mg PO ACBREAKFAST #30 cap.sr 12/25/19 [Rx] Acetaminophen 650 mg PO Q4H PRN 02/12/20 [History] Empagliflozin [Jardiance] 10 mg PO DAILY 02/12/20 [History] Amitriptyline [Elavil] 20 mg PO BEDTIME 05/31/20 [History] Dicyclomine [Bentyl] 10 mg PO BID 05/31/20 [History] Meclizine [Antivert] 25 mg PO Q6H PRN #30 tab 09/20/20 [Rx] Past Medical History HEENT History: Reports: Allergic Rhinitis, Hard of Hearing, Impaired Vision, Other (See Below). 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 Denies: Afib, Aneurysm, Blood Clots/VTE/DVT, CAD, Cardiomyopathy, Heart Failure, Heart Murmur, FL, PVD Other Cardiovascular History: Near syncope on 02/12/17 and 12/24/2019. Sinus Tachycardia. Respiratory History: Reports: Bronchitis, Recurrent, COPD, Sleep Apnea, Other (See Below). Denies: Asthma, Intubation, Difficult, Intubation, Previous, PE, Pneumonia, Recurrent, Pneumothorax, Pulmonary Fibrosis, TB Other Respiratory History: Patient unable to tolerate CPAP Gastrointestinal History: Reports: Diverticulosis, Gastritis, GERD, Other (See Below). Denies: Bowel Obstruction, Celiac Disease, Cholelithiasis, Chronic Constipation, Chronic Diarrhea, Colon Polyp, Fatty Liver, Fecal Incontinence, GI Bleed, Hepatitis, Helicobacter Pylori, Hiatal Hernia, Inflammatory Bowel Disease, Irritable Bowel Syndrome, Jaundice, Pancreatitis, PUD Other Gastrointestinal History: Sigmoid diverticulosis. Genitourinary History: Reports: Other (See Below). Denies: Acute Renal Failure, BPH, Chronic Renal Insuffiency, Diabetic Nephropathy, Renal Calculus, STD, Urinary Incontinence, UTI, Recurrent Other Genitourinary History: Erectile dysfunction Musculoskeletal History: Reports: Arthritis, Back Pain, Chronic, Neck Pain, Chronic, Osteoarthritis, Other (See Below). Denies: Fracture, Gout, Osteoporosis, RA, SLE Other Musculoskeletal History: bone spurs in feet Neurological History: Reports: Headaches, Chronic, Migraines, Vertigo, Other (See Below). Denies: Alzheimers Disease, Cerebral Aneurysms, CVA, Head Trauma, MS, Neuropathy, Peripheral, Parkinson's, Seizure, TIA Other Neuro History: Chronic vertigo with extensive negative work-up by patient history. Psychiatric History: Reports: Anxiety, Depression. Denies: Abuse, Victim of, ADD, ADHD, Addiction, Psych Hospitalization(s), PTSD, Suicide Attempt Endocrine/Metabolic History: Reports: Diabetes, Type II, Obesity/BMI 30+. Denies: Diabetes, Type I, Diabetes Mellitus, Type 3c, Hypothyroidism, IDDM Other Endocrine/Metabolic History: Testosterone deficiency, hypoalbuminemia Hematologic History: Reports: Polycythemia, Other (See Below). Denies: Anemia, Blood Transfusion(s), Iron Deficiency Other Hematologic History: Polycythemia likely secondary to his tobacco use. Immunologic History: Reports: None. Denies: AIDS, HIV, SLE Oncologic (Cancer) History: Reports: None. Denies: Basal Cell Carcinoma, Colon, Hodgkin's Lymphoma, Leukemia, Lymphoma, Malignant Melanoma, Non-Hodgkin's Lymphoma, Prostate, Squamous Cell Carcinoma, Thyroid Dermatologic History: Reports: None. Denies: Eczema, Psoriasis - Infectious Disease History Infectious Disease History: Reports: Chicken Pox. Denies: C-Difficile, Helicobacter Pylori, Measles, Meningitis, Mononucleosis, MRSA, Mumps, Novel Coronavirus, Pertussis (Whooping Cough), Rubella, Scarlet Fever, Shingles, TB, VRE - Past Surgical History Head Surgeries/Procedures: Reports: None HEENT Surgical History: Reports: Adenoidectomy, Oral Surgery, Tonsillectomy, Other (See Below) Other HEENT Surgeries/Procedures: Tonsillectomy and adenoidectomy at about age 18, [place] teeth extraction 3 at age 18 Cardiovascular Surgical History: Reports: None. Denies: Varicose Respiratory Surgical History: Reports: None. Denies: Thoracentesis GI Surgical History: Reports: Appendectomy, Colonoscopy, EGD, Other (See Below). Denies: Cholecystectomy Other GI Surgeries/Procedures: Appendectomy at age 17, EGD with biopsy and colonoscopy on 02/15/2020 with previous EGD and colonoscopy in 1991. Male Surgical History: Reports: Circumcision, Vasectomy, Other (See Below). Denies: TURP-Transurethral Resection of Prostate Other Male Surgeries/Procedures: Circumcision as an , vasectomy at age 25 Endocrine Surgical History: Reports: None. Denies: Thyroid Biopsy Neurological Surgical History: Reports: None. Denies: C-Spine, Discectomy, Laminectomy, Lumbar Spine, Spinal Fusion, Thoracic Spine, Vertebroplasty Musculoskeletal Surgical History: Reports: None Oncologic Surgical History: Reports: None Dermatological Surgical History: Reports: None - Past Imaging History Past Imaging History: Reports: CAT Scan (Abdomen and pelvis on 12/23/2019. Pelvis on 02/18/2018.), MRI (MRI of the right shoulder in about 2011), Sleep Study, Other (See Below) (Extensive [facility]-up at [facility] [place], including negative tilt table test, etc. by patient history) Social & Family History - Family History Family Medical History: No Pertinent Family History HEENT: Reports: None. Denies: Glaucoma, Macular Degeneration, Retinal Detachment Cardiac: Reports: Bypass, CAD, FL, Other (See Below). Denies: Afib, Arrhythmia, Blood Clots/VTE/DVT, High Cholesterol, Hypertension, PVD/COD, Syncope Other Cardiac Family History: Maternal uncle with FL in his 40s, mother with CABG x4 in her 60s with history of silent MIs Respiratory: Reports: Asthma, COPD, Other (See Below). Denies: PE, Sleep Apnea Other Respiratory Family Hisory: 3 children of asthma, maternal grandfather with COPD with history of tobacco use, father with possible COPD secondary to tobacco use GI: Reports: Colon Polyps, Pancreatitis, Other (See Below). Denies: Celiac Disease, Cholelithiasis, GERD, GI bleed, Inflammatory Bowel Disease, Irritable Bowel Syndrome Other GI Family History: maternal father with colonic polyps, father with history pancreatitis secondary to alcohol abuse : Reports: None OBGYN: Reports: None. Denies: Endometriosis, Recurrent Spontaneous Musculoskeletal: Reports: None. Denies: Arthritis, Gout, Osteoarthritis, RA, SLE Neurological: Reports: CVA, Seizure, Other (See Below). Denies: Cerebral Aneurysms, Migraines, MS, Parkinson's, TIA Other Neurological Family History: paternal great grandmother with CVA at about age 92, son with seizures since age 16 secondary to football injury Psychiatric: Reports: Anxiety, Depression, Other (See Below). Denies: Abuse, Victim of, ADD, ADHD, Psych Hospitalization(s), PTSD, Suicide Attempt Other Psychiatric Family History: Father with history of alcohol abuse, anxiety, and depression with subsequent postoperative narcotic addiction Endocrine/Metabolic: Reports: Diabetes, type II, IDDM, Other (See Below). Denies: Diabetes, Type I, Diabetes Mellitus, Type 3c, Hypothyroidism Other Endocrine/Metabolic Family History: IDDM in parents Hematologic: Reports: Anemia, Other (See Below) Other Hematologic Family History: Father with postoperative anemia Immunologic: Reports: None. Denies: AIDS, HIV, SLE Dermatologic: Reports: Eczema, Other (See Below). Denies: Psoriasis Other Dermatologic Family History: Son with eczema Oncologic: Reports: Colon, Pancreatic, Other (See Below) Other Oncologic Family History: Paternal grandmother with fatal pancreatic cancer in her 80s, possible fatal colon cancer in maternal grandfather in his 80s, paternal grandaunt with fatal unknown type of cancer in her 60s - Tobacco Use Tobacco Use Status *Q: Current Every Day Tobacco User Tobacco Use Within Last Twelve Months: Snuff/Dip Years of Tobacco use: 16 Packs/Tins Daily: 0.2 Packs/Tins Daily Comment: Started chewing tobacco use at age 34 with average use of 1 can/week Used Tobacco, but Quit: No Smoking Cessation Information Provided To Patient: Yes Second Hand Smoke Exposure: No Second Hand Smoke Education Provided: No - Caffeine Use Caffeine Use: Reports: Soda (34 sodas per day). Denies: Coffee, Energy Drinks, Tea - Alcohol Use Alcohol Use History: Yes Days Per Week of Alcohol Use: 0 Number of Drinks Per Day: 6 Number of Drinks Per Day Comment: Usually beer once per month. No previous DWIs, problems with alcohol abuse, etc. 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 ED EXAM, ENT - Physical Exam Exam: See Below Exam Limited By: No Limitations General Appearance: Alert, WD/WN, No Apparent Distress, Anxious (Moderate) Eye Exam: Bilateral Eye: EOMI, Normal Fundi, Normal Inspection (The patient is wearing glasses. Questionable vertigo without nystagmus with head movement), PERRL Ears: Normal External Exam, Normal Canal, Hearing Loss (Stable bilateralmild) Nose: Normal Inspection, Normal Mucousa, No Blood Mouth/Throat: Normal Inspection, Normal Gums, Normal Lips, Normal Oropharynx, Normal Teeth, Other (Chewing tobacco noted) Head: Atraumatic, Normocephalic. No: Facial Tenderness, Sinus Tenderness Neck: Normal Inspection, Supple, Non-Tender, Full Range of Motion. No: Carotid Bruit, Lymphadenopathy (L), Lymphadenopathy (R), Thyromegaly Respiratory/Chest: No Respiratory Distress, Lungs Clear, Normal Breath Sounds, No Accessory Muscle Use, Chest Non-Tender. No: Pleural Rub, Retractions Cardiovascular: Normal Peripheral Pulses, Regular Rate, Rhythm, No Edema, No Gallop, No JVD, No Murmur, No Rub. No: Gallop/S3, Gallop/S4, Friction Rub GI/Abdominal: Normal Bowel Sounds, Soft, Non-Tender, No Organomegaly, No Distention, No Abnormal Bruit, No Mass, Other (Obese). No: Guarding (Male) Exam: Deferred Rectal (Males) Exam: Deferred Back: Normal Inspection, Full Range of Motion. No: CVA Tenderness (L), CVA Tenderness (R), Muscle Spasm Extremities: Normal Inspection, Normal Range of Motion, Non-Tender, No Pedal Edema, Normal Capillary Refill. No: Erin's Sign Neurological: Alert, Oriented, CN II-XII Intact, Normal Cognition, Normal Gait, Normal Reflexes (Negative Babinski's, finger to nose, and pronator rotation tests. No evidence of facial paresis, tongue deviation, orthostasis, etc.. Excellent reverse thought processes.), No Motor/Sensory Deficits Psychiatric: Anxious (Moderate), Depressed Mood (Mild) Skin: Warm, Dry, Intact, Normal Color, No Rash Lymphatic: No Adenopathy Course - Vital Signs Last Recorded V/S: Last Vital Signs Temp 36.6 C 09/20/20 14:40 Pulse 101 H 09/20/20 14:40 Resp 16 09/20/20 14:40 BP 133/89 09/20/20 14:40 Pulse Ox 95 09/20/20 14:40 Vital Signs - 24 hr 09/20/20 14:40 Temperature [ 36.6 C Temporal] Pulse, 101 H Peripheral [ Left Pulse Oximetry] Respiratory 16 Rate Blood Pressure 133/89 [Right Arm] O2 Sat by Pulse 95 Oximetry - Orders/Labs/Meds Orders: Active Orders 24 hr Category Date Time Status Obtain Past Medical Record [OM.PC] Routine Oth 09/20/20 14:53 Active Labs: None Meds: Medications Discontinued Medications Generic Name Dose Route Start Last Admin Trade Name Freq PRN Reason Stop Dose Admin Methylprednisolone Acetate 80 mg 09/20/20 15:02 09/20/20 15:08 Methylprednisolone Acetate 80 Mg/Ml Sdv IM 09/20/20 15:03 80 mg ONETIME ONE Administration - Radiology Interpretation Free Text/Narrative:: None Departure - Departure Time of Disposition: 15:35 Disposition: Home, Self-Care 01 Condition: Good Clinical Impression: Tobacco abuse counseling, Vertigo, Mixed anxiety depressive disorder COPD (chronic obstructive pulmonary disease) Qualifiers: COPD type: COPD with acute lower respiratory infection Qualified Code(s): J44.0 - Chronic obstructive pulmonary disease with acute lower respiratory infection Hyperlipidemia Qualifiers: Hyperlipidemia type: mixed hyperlipidemia Qualified Code(s): E78.2 - Mixed hyperlipidemia Diabetes mellitus Qualifiers: Diabetes mellitus type: type 2 Diabetes mellitus superintendent terminal insulin use: without superintendent terminal use Diabetes mellitus complication status: without complication Qualified Code(s): E11.9 - Type 2 diabetes mellitus without complications Hypertension Qualifiers: Hypertension type: essential hypertension Qualified Code(s): I10 - Essential (primary) hypertension Osteoarthritis Qualifiers: Osteoarthritis location: multiple joints Osteoarthritis type: primary Qualified Code(s): M15.0 - Primary generalized (osteo)arthritis - Discharge Information *PRESCRIPTION DRUG MONITORING PROGRAM REVIEWED*: Not Applicable *COPY OF PRESCRIPTION DRUG MONITORING REPORT IN PATIENT PITA: Not Applicable Prescriptions: Meclizine [Antivert] 25 mg PO Q6H PRN #30 tab PRN Reason: Dizziness Instructions: Steps to Quit Smoking, [id number], Meclizine tablets or capsules, Health Risks of Smoking, Vertigo, [id number], Smokeless Tobacco Information, Adult, Methylprednisolone Suspension for Injection Referrals: Era Ramires RN [Registered Nurse] - Forms: ED Department Discharge Additional Instructions: 1. Followup with your regular provider in 5-7 days as directed. Bring these discharge instructions with you to that visit. 2. Discuss persistent chronic dizziness at that time with consideration of MRI of the ocular canal, etc. if this has not been conducted to this point. Also recommend referral to ENT for rule out of possible Mnire's disease 3. Work excuse- See Form 4. Discontinue chewing tobacco use DOMINIC as discussed 5. Sedation, dry mouth, and sedation precautions with meclizine as discussed. 6. Immediately after this visit verify that your cellular telephone's voicemail has been activated and is empty. Also verify that your home telephone's answering machine is operating properly and has space to receive messages. Note that it is sometimes necessary for us to be able to contact you at a later date to discuss your medical care. 7. Please remember that we are ALWAYS here for you and want to answer any questions you may have. Feel free to call the hospital any time and we call you back DOMINIC. Sepsis Event Note (ED) - Evaluation Sepsis Screening Result: No Definite Risk - Focused Exam Vital Signs: Vital Signs Temp Pulse Resp BP Pulse Ox 09/20/20 14:40 36.6 C 101 H 16 133/89 95 - Problem List & Annotations (1) Vertigo SNOMED Code(s): 945462342 Code(s): R42 - DIZZINESS AND GIDDINESS Status: Chronic Priority: High Annotation/Comment:: Chronic condition for at least the last year with extensive previous work-up at the [facility] [place] by his history, including negative tilt table test, etc.. He apparently has not been evaluated by ENT or had an MRI of the auditory canal. He was strongly encouraged to follow-up with his regular providers at the [facility] and have this referral and/your evaluation conducted. Various therapeutic options were discussed with patient agreed to IM Depo-Medrol injection with additional oral meclizine for symptom relief. Sedation precautions were discussed. The patient has missed work since 09/15 with [employer] work excuse provided. Activity restrictions, fall precautions, etc. were extensively discussed. Note history of acoustic trauma, hearing loss, etc. with possibility of Mnire's disease, which should be evaluated by his ENT as above. (2) Diabetes mellitus SNOMED Code(s): 01474373 Code(s): E11.9 - TYPE 2 DIABETES MELLITUS WITHOUT COMPLICATIONS Status: Acute Priority: High Annotation/Comment:: Stable by history. Home Accu-Chek prior to ER evaluation this morning was in the 150s by his history. He does not normally take Accu-Cheks. Weight loss moderation is advisable. Continue to observe closely through his regular providers. Qualifiers: Diabetes mellitus type: type 2 Diabetes mellitus longterm insulin use: without longterm use Diabetes mellitus complication status: without c omplication Qualified Code(s): E11.9 - Type 2 diabetes mellitus without complications (3) COPD (chronic obstructive pulmonary disease) SNOMED Code(s): 38223374 Code(s): J44.9 - CHRONIC OBSTRUCTIVE PULMONARY DISEASE, UNSPECIFIED Status: Chronic Priority: Medium Annotation/Comment:: Stable by history with no recent fever or bronchitic type symptoms. Note history of sleep apnea with patient not tolerating CPAP. Qualifiers: COPD type: COPD with acute lower respiratory infection Qualified Code(s): J44.0 - Chronic obstructive pulmonary disease with (acute) lower respiratory infection (4) Hypertension SNOMED Code(s): 64723342 Code(s): I10 - ESSENTIAL (PRIMARY) HYPERTENSION Status: Chronic Priority: Medium Annotation/Comment:: Continue to observe closely by his regular providers. Qualifiers: Hypertension type: essential hypertension Qualified Code(s): I10 - Essential (primary) hypertension (5) Tobacco abuse counseling SNOMED Code(s): 967063147, 646851090, 091997256 Code(s): Z71.6 - TOBACCO ABUSE COUNSELING Status: Chronic Priority: Medium Annotation/Comment:: Patient was once again counseled on the use of Nicorette gum with tobacco cessation strongly encouraged. Tobacco cessation information was provided. (6) Mixed anxiety depressive disorder SNOMED Code(s): 562672761 Code(s): F41.8 - OTHER SPECIFIED ANXIETY DISORDERS Status: Chronic Priority: Medium Annotation/Comment:: Moderate control based on today's exam. Continue to observe closely by his regular providers. - Problem List Review Problem List Initiated/Reviewed/Updated: Yes - My Orders Last 24 Hours: My Active Orders 09/20/20 14:53 Obtain Past Medical Record [OM.PC] Routine - Assessment/Plan Last 24 Hours: My Active Orders 09/20/20 14:53 Obtain Past Medical Record [OM.PC] Routine Assessment:: As above Plan: As above. Extensive precautions were given to the patient, who is in agreement with the treatment plan. See Patient Instructions for further treatment and plan.
[2020-09-20] MEDS ORDERED: methylPREDNISolone Acetate 80 MG/ML SDV IM ONE (15:02)
== END 2020-09-20 15:32 | disposition home or self-care (01) ==
LOC: LL.ED 14:38
DX: R42 Dizziness and giddiness (principal); F41.1 Generalized anxiety disorder; J44.0 Chronic obstructive pulmonary disease with (acute) lower respiratory infection; E11.9 Type 2 diabetes mellitus without complications; E78.2 Mixed hyperlipidemia; I10 Essential (primary) hypertension; M15.0 Primary generalized (osteo)arthritis; Z71.6 Tobacco abuse counseling; Z88.5 Allergy status to narcotic agent; Z88.8 Allergy status to other drugs, medicaments and biological substances; Z79.899 Other long term (current) drug therapy; Z79.84 Long term (current) use of oral hypoglycemic drugs
CPT/HCPCS: 96372; 99283; 99284; J1040

== ENCOUNTER 2021-04-12 11:54 | Emergency (ER) | payer BC, OTHER ==
--- NOTE | 2021-04-12 12:33 | EDM.PDOC ---
ED [facility] GENERAL MEDICAL PROBLEM - General Chief Complaint: Flank Pain Stated Complaint: right rib pain Time Seen by Provider: 04/12/21 12:05 Source of Information: Reports: Patient History Limitations: Reports: No Limitations - History of Present Illness INITIAL COMMENTS - FREE TEXT/NARRATIVE: pt presents to the ED today for evaluation of right anterior rib/upper abdomen pain. Pain has been present since he was walking his dog about one month ago and the dog pulled on the leash causing Kuldeep to strain his right side. Pain is sharp in character, is worse with movement, better with rest and stabilization. He has been wearing an abdominal compression garment he got in PT to "hold it in place" and feels like this somewhat works to control pain. He has a PMH significant for chronic pain so OTC medications don't work for him. He has tried nothing else. time of day is not a factor. Pain is 5/10 with no radiation. He has not had anything like this prior. He has not seen a primary in quite some time, is in the middle of a work up for dizziness, is not wearing prescribed compression socks. He also follows with endocrinology for DMII and a pain specialist for his chronic pain. no other acute concerns. Onset: Sudden Duration: Week(s):, Constant Location: Reports: Abdomen (right upper quadrant) Quality: Reports: Sharp Severity: Moderate Improves with: Reports: Immobilization, Rest Worsens with: Reports: Breathing, Movement Context: Reports: Other (while walking dog, see HPI) Associated Symptoms: Reports: No Other Symptoms Treatments HALF BACKER: Reports: Other (see below) (abdomen binder) - Related Data Allergies Allergy/AdvReac Type Severity Reaction Status Date / Time bupropion Allergy Other Verified 04/12/21 12:31 codeine AdvReac Nausea and Verified 04/12/21 12:51 Vomiting diclofenac AdvReac Hypertensio Verified 04/12/21 12:50 n Home Meds: Home Meds Testosterone [Androgel] 1 applic TOP DAILY 02/12/17 [History] atorvaSTATin [Lipitor] 20 mg PO BEDTIME 02/12/17 [History] Cetirizine HCl [Zyrtec] 10 mg PO DAILY 12/24/19 [History] DULoxetine HCl [Cymbalta] 90 mg PO DAILY 12/24/19 [History] Etodolac 500 mg PO BID 12/24/19 [History] metFORMIN HCl [Metformin HCl ER] 1,000 mg PO BID 12/24/19 [History] Acetaminophen 650 mg PO Q4H PRN 02/12/20 [History] Empagliflozin [Jardiance] 10 mg PO DAILY 02/12/20 [History] Amitriptyline [Elavil] 60 mg PO BEDTIME 05/31/20 [History] Dicyclomine [Bentyl] 10 mg PO BID 05/31/20 [History] Diclofenac Sodium [Voltaren Arthritis Pain] 1 applic TOP DAILY 04/12/21 [History] lisinopriL [Lisinopril] 1 tab PO DAILY 04/12/21 [History] Past Medical History HEENT History: Reports: Allergic Rhinitis, Hard of Hearing, Impaired Vision, Other (See Below). 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 Denies: Afib, Aneurysm, Blood Clots/VTE/DVT, CAD, Cardiomyopathy, Heart Failure, Heart Murmur, VT, PVD Other Cardiovascular History: Near syncope on 02/12/17 and 12/24/2019. Sinus Tachycardia. Respiratory History: Reports: Bronchitis, Recurrent, COPD, Sleep Apnea, Other (See Below). Denies: Asthma, Intubation, Difficult, Intubation, Previous, PE, Pneumonia, Recurrent, Pneumothorax, Pulmonary Fibrosis, TB Other Respiratory History: Patient unable to tolerate CPAP Gastrointestinal History: Reports: Diverticulosis, Gastritis, GERD, Other (See Below). Denies: Bowel Obstruction, Celiac Disease, Cholelithiasis, Chronic Constipation, Chronic Diarrhea, Colon Polyp, Fatty Liver, Fecal Incontinence, GI Bleed, Hepatitis, Helicobacter Pylori, Hiatal Hernia, Inflammatory Bowel Disease, Irritable Bowel Syndrome, Jaundice, Pancreatitis, PUD Other Gastrointestinal History: Sigmoid diverticulosis. Genitourinary History: Reports: Other (See Below). Denies: Acute Renal Failure, BPH, Chronic Renal Insuffiency, Diabetic Nephropathy, Renal Calculus, STD, Urinary Incontinence, UTI, Recurrent Other Genitourinary History: Erectile dysfunction Musculoskeletal History: Reports: Arthritis, Back Pain, Chronic, Neck Pain, Chronic, Osteoarthritis, Other (See Below). Denies: Fracture, Gout, Osteoporosis, RA, SLE Other Musculoskeletal History: bone spurs in feet Neurological History: Reports: Headaches, Chronic, Migraines, Vertigo, Other (See Below). Denies: Alzheimers Disease, Cerebral Aneurysms, CVA, Head Trauma, MS, Neuropathy, Peripheral, Parkinson's, Seizure, TIA Other Neuro History: Chronic vertigo with extensive negative work-up by patient history. Psychiatric History: Reports: Anxiety, Depression. Denies: Abuse, Victim of, ADD, ADHD, Addiction, Psych Hospitalization(s), PTSD, Suicide Attempt Endocrine/Metabolic History: Reports: Diabetes, Type II, Obesity/BMI 30+. Denies: Diabetes, Type I, Diabetes Mellitus, Type 3c, Hypothyroidism, IDDM Other Endocrine/Metabolic History: Testosterone deficiency, hypoalbuminemia Hematologic History: Reports: Polycythemia, Other (See Below). Denies: Anemia, Blood Transfusion(s), Iron Deficiency Other Hematologic History: Polycythemia likely secondary to his tobacco use. Immunologic History: Reports: None. Denies: AIDS, HIV, SLE Oncologic (Cancer) History: Reports: None. Denies: Basal Cell Carcinoma, Colon, Hodgkin's Lymphoma, Leukemia, Lymphoma, Malignant Melanoma, Non-Hodgkin's Lymphoma, Prostate, Squamous Cell Carcinoma, Thyroid Dermatologic History: Reports: None. Denies: Eczema, Psoriasis - Infectious Disease History Infectious Disease History: Reports: Chicken Pox. Denies: C-Difficile, Helicobacter Pylori, Measles, Meningitis, Mononucleosis, MRSA, Mumps, Novel Coronavirus, Pertussis (Whooping Cough), Rubella, Scarlet Fever, Shingles, TB, VRE - Past Surgical History Cardiovascular Surgical History: Reports: None. Denies: Varicose Respiratory Surgical History: Reports: None. Denies: Thoracentesis GI Surgical History: Reports: Appendectomy, Colonoscopy, EGD, Other (See Below). Denies: Cholecystectomy Other GI Surgeries/Procedures: Appendectomy at age 17, EGD with biopsy and colonoscopy on 02/15/2020 with previous EGD and colonoscopy in 1991. Male Surgical History: Reports: Circumcision, Vasectomy, Other (See Below). Denies: TURP-Transurethral Resection of Prostate Endocrine Surgical History: Reports: None. Denies: Thyroid Biopsy Neurological Surgical History: Reports: None. Denies: C-Spine, Discectomy, Laminectomy, Lumbar Spine, Spinal Fusion, Thoracic Spine, Vertebroplasty - Past Imaging History Past Imaging History: Reports: CAT Scan (Abdomen and pelvis on 12/23/2019. Pelvis on 02/18/2018.), MRI (MRI of the right shoulder in about 2011), Sleep Study, Other (See Below) (Extensive work-up at the [facility] in [place], including negative tilt table test, etc. by patient history) Social & Family History - Family History Family Medical History: No Pertinent Family History HEENT: Reports: None. Denies: Glaucoma, Macular Degeneration, Retinal Detachment Cardiac: Reports: Bypass, CAD, VT, Other (See Below). Denies: Afib, Arrhythmia, Blood Clots/VTE/DVT, High Cholesterol, Hypertension, PVD/COD, Syncope Other Cardiac Family History: Maternal uncle with VT in his 40s, mother with CABG x4 in her 60s with history of silent MIs Respiratory: Reports: Asthma, COPD, Other (See Below). Denies: PE, Sleep Apnea Other Respiratory Family Hisory: 3 children of asthma, maternal grandfather with COPD with history of tobacco use, father with possible COPD secondary to tobacco use GI: Reports: Colon Polyps, Pancreatitis, Other (See Below). Denies: Celiac Disease, Cholelithiasis, GERD, GI bleed, Inflammatory Bowel Disease, Irritable Bowel Syndrome Other GI Family History: maternal father with colonic polyps, father with history pancreatitis secondary to alcohol abuse : Reports: None OBGYN: Reports: None. Denies: Endometriosis, Recurrent Spontaneous Musculoskeletal: Reports: None. Denies: Arthritis, Gout, Osteoarthritis, RA, SLE Neurological: Reports: CVA, Seizure, Other (See Below). Denies: Cerebral Aneurysms, Migraines, MS, Parkinson's, TIA Other Neurological Family History: paternal great grandmother with CVA at about age 92, son with seizures since age 16 secondary to football injury Psychiatric: Reports: Anxiety, Depression, Other (See Below). Denies: Abuse, Victim of, ADD, ADHD, Psych Hospitalization(s), PTSD, Suicide Attempt Other Psychiatric Family History: Father with history of alcohol abuse, anxiety, and depression with subsequent postoperative narcotic addiction Endocrine/Metabolic: Reports: Diabetes, type II, IDDM, Other (See Below). Denies: Diabetes, Type I, Diabetes Mellitus, Type 3c, Hypothyroidism Other Endocrine/Metabolic Family History: IDDM in parents Hematologic: Reports: Anemia, Other (See Below) Other Hematologic Family History: Father with postoperative anemia Immunologic: Reports: None. Denies: AIDS, HIV, SLE Dermatologic: Reports: Eczema, Other (See Below). Denies: Psoriasis Other Dermatologic Family History: Son with eczema Oncologic: Reports: Colon, Pancreatic, Other (See Below) Other Oncologic Family History: Paternal grandmother with fatal pancreatic cancer in her 80s, possible fatal colon cancer in maternal grandfather in his 80s, paternal grandaunt with fatal unknown type of cancer in her 60s - Caffeine Use Caffeine Use: Reports: Soda (34 sodas per day). 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) ED ROS GENERAL - Review of Systems Review Of Systems: See Below Constitutional: Reports: No Symptoms HEENT: Reports: No Symptoms Respiratory: Reports: No Symptoms Cardiovascular: Reports: No Symptoms Endocrine: Reports: No Symptoms GI/Abdominal: Reports: Abdominal Pain (RUQ) : Reports: No Symptoms Musculoskeletal: Reports: Back Pain (chronic), Muscle Pain Skin: Reports: No Symptoms Neurological: Reports: Dizziness (chronic) Psychiatric: Reports: No Symptoms Hematologic/Lymphatic: Reports: No Symptoms Immunologic: Reports: No Symptoms ED EXAM, GENERAL - Physical Exam Exam: See Below Exam Limited By: No Limitations General Appearance: Alert, WD/WN, No Apparent Distress Eye Exam: Bilateral Eye: EOMI Ears: Normal External Exam Nose: Normal Inspection, Normal Mucosa Throat/Mouth: Normal Inspection Head: Atraumatic, Normocephalic Neck: Normal Inspection, Supple, Full Range of Motion Respiratory/Chest: No Respiratory Distress, Lungs Clear, Normal Breath Sounds, No Accessory Muscle Use Cardiovascular: Normal Peripheral Pulses, Regular Rate, Rhythm, No Edema GI/Abdominal: Soft, No Distention, Guarding (RUQ), Tender (anterior floating ribs and subcostal space tenderness noted). No: Distended, Abnormal Bowel Sounds, Mass, Hepatomegaly (Male) Exam: Deferred Rectal (Males) Exam: Deferred Extremities: Normal Range of Motion Neurological: Alert, Oriented, Normal Cognition Psychiatric: Normal Affect, Normal Mood Skin Exam: Warm, Dry Course - Vital Signs Last Recorded V/S: Last Vital Signs Temp 98.8 F 04/12/21 12:00 Pulse 91 04/12/21 12:00 Resp 16 04/12/21 12:00 BP 121/81 04/12/21 12:00 Pulse Ox 94 L 04/12/21 12:00 - Orders/Labs/Meds Orders: Active Orders 24 hr Category Date Time Status Blood Glucose Check, Bedside [RC] ONETIME Care 04/12/21 12:26 Active Chest 2V [CR] Stat Exams 04/12/21 12:27 Taken Labs: Laboratory Tests 04/12/21 04/12/21 04/12/21 Range/Units 12:33 12:33 12:55 WBC 5.8 (4.0-10.2) K/uL RBC 5.36 (4.33-5.41) M/uL Hgb 15.9 (13.1-16.8) g/dL Hct 47.3 (39.0-49.0) % MCV 88.2 (84.0-98.0) fL MCH 29.7 (28.2-33.3) pg MCHC 33.6 (31.7-36.0) g/dL RDW 13.3 (11.2-14.1) % Plt Count 270 (150-350) K/uL Neut % (Auto) 53.0 (45.0-80.0) % Lymph % (Auto) 33.9 (10.0-50.0) % Garvin % (Auto) 8.8 (2.0-14.0) % Eos % (Auto) 4.0 (0.0-5.0) % Baso % (Auto) 0.3 (0.0-2.0) % Neut # (Auto) 3.06 (1.40-7.00) K/uL Lymph # (Auto) 1.96 (0.50-3.50) K/uL Garvin # (Auto) 0.51 (0.00-1.00) K/uL Eos # (Auto) 0.23 (0.00-0.50) K/uL Baso # (Auto) 0.02 (0.00-0.20) K/uL Sodium 144 (136-145) mmol/L Potassium 4.6 (3.5-5.1) mmol/L Chloride 108 H (98-107) mmol/L Carbon Dioxide 27.0 (21.0-32.0) mmol/L Anion Gap 13.6 (7-15) meq/L BUN 12 (7-18) mg/dL Creatinine 1.10 (0.51-1.17) mg/dL Est Cr Clr Drug Dosing TNP Estimated GFR (MDRD) > 60 mL/min Glucose 103 H (70-99) mg/dL POC Glucose 112 H (70-99) mg/dL Calcium 9.0 (8.5-10.1) mg/dL Total Bilirubin 0.3 (0.2-1.0) mg/dL AST 16 (15-37) U/L ALT 41 (12-78) U/L Alkaline Phosphatase 63 (46-116) IU/L Total Protein 7.7 (6.4-8.2) g/dL Albumin 4.0 (3.4-5.0) g/dL - Re-Assessments/Exams Free Text/Narrative Re-Assessment/Exam: 04/12/21 12:39 met at bedside. reproducible pain on palpation. injury 1 month ago while walking dog. afebrile and hemodynamically stable. thought this was an urgent care. will rule out life threat emergencies and he will follow with PCP 04/12/21 13:21 Labs largely WNL. mild elevation of blood glucose in known diabetic. no obvious fracture on XR. will discharge to follow with PCP. Departure - Departure Time of Disposition: 13:24 Disposition: Home, Self-Care 01 Condition: Good Clinical Impression: Muscle strain - Discharge Information *PRESCRIPTION DRUG MONITORING PROGRAM REVIEWED*: Not Applicable *COPY OF PRESCRIPTION DRUG MONITORING REPORT IN PATIENT PITA: Not Applicable Forms: ED Department Discharge Additional Instructions: - avoid abdominal brace - ibuprofen 600mg tid for inflammation/pain control - follow with pain clinic and PCP if this continues to be a problem - Ice: 15 minutes on and 45 minutes off. alternate with heat. Sepsis Event Note (ED) - Focused Exam Vital Signs: Vital Signs Temp Pulse Resp BP Pulse Ox 04/12/21 12:00 98.8 F 91 16 121/81 94 L - Problem List Review Problem List Initiated/Reviewed/Updated: Yes - My Orders Last 24 Hours: My Active Orders 04/12/21 12:26 Blood Glucose Check, Bedside [RC] ONETIME 12/29/21 12:27 Chest 2V [CR] Stat - Assessment/Plan Admission H&P: Please use this note as an admission H&P Last 24 Hours: My Active Orders 04/12/21 12:26 Blood Glucose Check, Bedside [RC] ONETIME 04/12/21 12:27 Chest 2V [CR] Stat Assessment:: musculoskeletal strain, right anterior abdominal wall: - CXR: negative for acute fracture - reproducible pain is likely musculoskeletal injury Plan: - avoid abdominal brace - ibuprofen 600mg tid for inflammation/pain control - follow with pain clinic and PCP if this continues to be a problem - Ice: 15 minutes on and 45 minutes off. alternate with heat.
[2021-04-12 12:57] VITALS: BP 121/81; PULSE 91
[2021-04-12 13:07] LABS: ANION GAP 13.6 meq/L (7-15); CHLORIDE,CL 108 mmol/L (98-107); SODIUM,NA 144 mmol/L (136-145)
== END 2021-04-12 13:40 | disposition home or self-care (01) ==
LOC: LL.ED 11:54
DX: S29.011A Strain of muscle and tendon of front wall of thorax, initial encounter (principal); E78.00 Pure hypercholesterolemia, unspecified; I11.0 Hypertensive heart disease with heart failure; I50.9 Heart failure, unspecified; E11.9 Type 2 diabetes mellitus without complications; K21.9 Gastro-esophageal reflux disease without esophagitis; J44.9 Chronic obstructive pulmonary disease, unspecified; I25.2 Old myocardial infarction; I25.10 Atherosclerotic heart disease of native coronary artery without angina pectoris; E66.9 Obesity, unspecified; Z68.30 Body mass index [BMI] 30.0-30.9, adult; Z88.5 Allergy status to narcotic agent; Z88.8 Allergy status to other drugs, medicaments and biological substances; X50.1XXA Overexertion from prolonged static or awkward postures, initial encounter; Y93.K1 Activity, walking an animal
CPT/HCPCS: 36415; 71046; 80053; 82947; 85025; 99283-25

== ENCOUNTER 2021-08-18 11:24 | Observation (INO) | payer OTHER ==
[2021-08-18] MEDS ORDERED: Sodium Chloride 0.9% 10 ML Syringe FLUSH PRN (11:41)
[2021-08-18 12:02] LABS: CHLORIDE,CL 107 mmol/L (98-107); SODIUM,NA 141 mmol/L (136-145)
[2021-08-18] MEDS ORDERED: Sodium Chloride 0.9% 1,000 ML IV ONE (12:19)
[2021-08-18] MEDS ORDERED: Aspirin 81 MG Tab.Chew PO ONE (13:27)
[2021-08-18] MEDS ORDERED: Ketorolac 30 MG/ML SDV IVPUSH ONE (14:06)
[2021-08-18] MEDS ORDERED: SUMAtriptan 50 MG Tab PO ONE (14:07)
[2021-08-18] MEDS ORDERED: Diclofenac Sodium 1% Gel 100 GM Tube TOP PRN (14:43)
[2021-08-18] MEDS ORDERED: Naproxen 250 MG Tab PO PRN (14:45)
[2021-08-18] MEDS: Sodium Chloride 0.9% 1,000 ML IV ONE ×2 (15:32→19:23)
[2021-08-18] MEDS ORDERED: SUMAtriptan 50 MG Tab ONE (19:36)
[2021-08-18] MEDS: Dicyclomine 20 MG Tab PO SCH (19:44)
[2021-08-18] MEDS: Famotidine 20 MG Tab PO SCH (19:45)
[2021-08-18] MEDS: Amitriptyline 25 MG Tab PO SCH (19:46)
[2021-08-18] MEDS: atorvaSTATin 40 MG Tab PO SCH (19:46)
[2021-08-18] MEDS: Topiramate 100 MG Tab PO SCH (19:47)
[2021-08-18] MEDS: Melatonin 3 MG Tab PO SCH (19:47)
[2021-08-18] MEDS: busPIRone 15 MG Tab PO SCH (19:47)
[2021-08-18] MEDS: METFORMIN 500 MG PO SCH (19:48)
[2021-08-19 08:17] LABS: CHLORIDE,CL 112 mmol/L (98-107); SODIUM,NA 145 mmol/L (136-145)
[2021-08-19] MEDS: Lisinopril 10 MG Tab PO SCH (08:17)
[2021-08-19] MEDS: Dicyclomine 20 MG Tab PO SCH ×3 (08:20→17:38)
[2021-08-19] MEDS: Topiramate 25 MG Tab PO SCH (08:21)
[2021-08-19] MEDS: busPIRone 15 MG Tab PO SCH ×2 (08:21→17:38)
[2021-08-19] MEDS: DULoxetine 30 MG Cap PO SCH (08:22)
[2021-08-19] MEDS: Cetirizine 10 MG Tab PO SCH (08:22)
[2021-08-19] MEDS: METFORMIN 500 MG PO SCH ×2 (08:30→17:43)
[2021-08-19] MEDS: EMPAGLIFLOZIN 25 MG PO SCH (08:30)
[2021-08-19] MEDS ORDERED: Orphenadrine 60 MG/2 ML Inj IV ONE (09:13)
[2021-08-19] MEDS ORDERED: Sodium Chloride 0.9% 1,000 ML IV SCH (09:15)
[2021-08-19] MEDS: Multivitamin Tab PO SCH (10:07)
[2021-08-19] MEDS: Topiramate 100 MG Tab PO SCH (17:39)
[2021-08-19] MEDS: atorvaSTATin 40 MG Tab PO SCH (20:56)
[2021-08-19] MEDS: Melatonin 3 MG Tab PO SCH (20:56)
[2021-08-19] MEDS: Famotidine 20 MG Tab PO SCH (20:57)
[2021-08-19] MEDS: Amitriptyline 25 MG Tab PO SCH (21:00)
[2021-08-20] MEDS: DULoxetine 30 MG Cap PO SCH (07:52)
[2021-08-20] MEDS: Multivitamin Tab PO SCH (07:52)
[2021-08-20] MEDS: Dicyclomine 20 MG Tab PO SCH (07:52)
[2021-08-20] MEDS: Cetirizine 10 MG Tab PO SCH (07:52)
[2021-08-20] MEDS: busPIRone 15 MG Tab PO SCH (07:52)
[2021-08-20] MEDS: Topiramate 25 MG Tab PO SCH (07:54)
[2021-08-20] MEDS: Lisinopril 10 MG Tab PO SCH (07:54)
[2021-08-20] MEDS ORDERED: Orphenadrine 60 MG/2 ML Inj IV ONE (08:14)
[2021-08-20 08:23] VITALS: BP 106/69
[2021-08-20] MEDS: METFORMIN 500 MG PO SCH (08:40)
[2021-08-20] MEDS: EMPAGLIFLOZIN 25 MG PO SCH (08:41)
[2021-08-20 09:15] LABS: CHLORIDE,CL 110 mmol/L (98-107); SODIUM,NA 145 mmol/L (136-145)
[2021-08-20 09:20] LABS: ANION GAP 14.2 meq/L (7-15)
[2021-08-20 09:53] VITALS: PULSE 80
== END 2021-08-20 10:30 | disposition home or self-care (01) ==
LOC: LL.ED 11:24 → LL.MS 13:37 → INTOOBSV 13:37
PROVIDERS: ADMIT Emergency Medicine; ATTEND Emergency Medicine
DX: R29.90 Unspecified symptoms and signs involving the nervous system (principal); R51.9 Headache, unspecified; R42 Dizziness and giddiness; I10 Essential (primary) hypertension; M19.90 Unspecified osteoarthritis, unspecified site; E11.9 Type 2 diabetes mellitus without complications; K21.9 Gastro-esophageal reflux disease without esophagitis; E29.1 Testicular hypofunction; F41.8 Other specified anxiety disorders; R79.89 Other specified abnormal findings of blood chemistry; F32.A Depression, unspecified; F41.9 Anxiety disorder, unspecified; E78.00 Pure hypercholesterolemia, unspecified; H54.7 Unspecified visual loss; J44.9 Chronic obstructive pulmonary disease, unspecified; F17.200 Nicotine dependence, unspecified, uncomplicated; Z88.6 Allergy status to analgesic agent; Z88.5 Allergy status to narcotic agent; E66.9 Obesity, unspecified; Z68.30 Body mass index [BMI] 30.0-30.9, adult; Z79.84 Long term (current) use of oral hypoglycemic drugs; Z79.899 Other long term (current) drug therapy
CPT/HCPCS: 36415; 70450; 71045; 80048; 80053; 81003; 82947; 83605; 83735; 83880; 84484; 85025; 85379; 85610; 93005; 99217; 99220; 99225; A9270-GY; J1885; J2360; J3490; J7030

== ENCOUNTER 2021-09-12 12:53 | Emergency (ER) | payer BC, OTHER ==
[2021-09-12] MEDS: Sodium Chloride 0.9% 1,000 ML IV ONE (13:57)
[2021-09-12] MEDS: Ketorolac 30 MG/ML SDV IVPUSH ONE (13:57)
[2021-09-12] MEDS: Ondansetron 4 MG/2 ML SDV IVPUSH ONE (13:58)
[2021-09-12] MEDS: diphenhydrAMINE 50 MG/ML SDV IVPUSH ONE (13:58)
[2021-09-12 14:56] VITALS: BP 126/84; PULSE 83
== END 2021-09-12 13:30 | disposition home or self-care (01) ==
LOC: LL.ED 12:53
DX: R51.9 Headache, unspecified (principal); R20.2 Paresthesia of skin; R20.0 Anesthesia of skin; E78.00 Pure hypercholesterolemia, unspecified; I10 Essential (primary) hypertension; J44.9 Chronic obstructive pulmonary disease, unspecified; K21.9 Gastro-esophageal reflux disease without esophagitis; F17.210 Nicotine dependence, cigarettes, uncomplicated; E66.9 Obesity, unspecified; Z68.30 Body mass index [BMI] 30.0-30.9, adult; Z88.5 Allergy status to narcotic agent; Z88.8 Allergy status to other drugs, medicaments and biological substances; Z79.899 Other long term (current) drug therapy; Z79.84 Long term (current) use of oral hypoglycemic drugs
CPT/HCPCS: 96361; 96374; 96375; 99283-25; 99284; J1200; J1885; J2405; J7030

== ENCOUNTER 2021-12-13 13:00 | Emergency (ER) | payer SELFPAY ==
[2021-12-13 15:05] LABS: RESPIRATORY SYNCYTIAL VIR NAA NEGATIVE (NEGATIVE)
[2021-12-13 15:08] LABS: CORONAVIRUS COVID-19 NAA POSITIVE (NEGATIVE)
[2021-12-13 15:32] VITALS: BP 101/72; PULSE 97
== END 2021-12-13 16:30 | disposition home or self-care (01) ==
LOC: LL.ED 13:00
DX: U07.1 COVID-19 (principal); J12.82 Pneumonia due to coronavirus disease 2019; E78.00 Pure hypercholesterolemia, unspecified; I10 Essential (primary) hypertension; M19.90 Unspecified osteoarthritis, unspecified site; E11.9 Type 2 diabetes mellitus without complications; E66.9 Obesity, unspecified; Z68.30 Body mass index [BMI] 30.0-30.9, adult; Z88.5 Allergy status to narcotic agent; Z88.8 Allergy status to other drugs, medicaments and biological substances; Z79.899 Other long term (current) drug therapy; Z86.16 Personal history of COVID-19; Z87.891 Personal history of nicotine dependence; Z86.73 Personal history of transient ischemic attack (TIA), and cerebral infarction without residual deficits
CPT/HCPCS: 0241U; 99284

== ENCOUNTER 2022-03-20 19:31 | Emergency (ER) | payer SELFPAY ==
[2022-03-20 20:02] VITALS: PULSE 85
[2022-03-20 21:06] VITALS: BP 128/83
== END 2022-03-20 21:00 | disposition home or self-care (01) ==
LOC: LL.ED 19:31
DX: S40.021A Contusion of right upper arm, initial encounter (principal); I10 Essential (primary) hypertension; E78.00 Pure hypercholesterolemia, unspecified; J44.9 Chronic obstructive pulmonary disease, unspecified; M19.90 Unspecified osteoarthritis, unspecified site; E11.9 Type 2 diabetes mellitus without complications; E66.9 Obesity, unspecified; Z88.8 Allergy status to other drugs, medicaments and biological substances; Z88.5 Allergy status to narcotic agent; Z79.899 Other long term (current) drug therapy; Z79.84 Long term (current) use of oral hypoglycemic drugs; W11.XXXA Fall on and from ladder, initial encounter
CPT/HCPCS: 73070-RT; 73090-RT; 73110-RT; 99283; 99284

== ENCOUNTER 2022-04-30 16:36 | Emergency (ER) | payer OTHER ==
[2022-04-30] MEDS ORDERED: Sodium Chloride 0.9% 10 ML Syringe FLUSH PRN (16:56)
[2022-04-30] MEDS ORDERED: Doxycycline Monohydrate 100 MG Cap PO ONE ×2 (17:24→17:49)
[2022-04-30 17:25] LABS: ANION GAP 9.5 meq/L (7-15); CHLORIDE,CL 106 mmol/L (98-107); ESTIMATED GFR 71 mL/min (>=60); SODIUM,NA 142 mmol/L (136-145)
[2022-04-30] MEDS ORDERED: Benzonatate 100 MG Cap PO ONE (17:25)
[2022-04-30] MEDS ORDERED: predniSONE 20 MG Tab PO ONE (17:41)
[2022-04-30 18:32] VITALS: BP 115/88; PULSE 98
[2022-05-01] MEDS ORDERED: Doxycycline Monohydrate 100 MG Cap PO ONE (08:00)
[2022-05-01] MEDS ORDERED: predniSONE 20 MG Tab PO ONE (17:29)
== END 2022-04-30 18:15 | disposition home or self-care (01) ==
LOC: LL.ED 16:36
DX: J40 Bronchitis, not specified as acute or chronic (principal); I10 Essential (primary) hypertension; E78.00 Pure hypercholesterolemia, unspecified; K21.9 Gastro-esophageal reflux disease without esophagitis; M19.90 Unspecified osteoarthritis, unspecified site; E11.9 Type 2 diabetes mellitus without complications; E66.9 Obesity, unspecified; Z88.8 Allergy status to other drugs, medicaments and biological substances; Z88.5 Allergy status to narcotic agent; Z79.899 Other long term (current) drug therapy; Z79.84 Long term (current) use of oral hypoglycemic drugs
CPT/HCPCS: 36415; 71045; 80053; 83605; 83735; 83880; 84484; 85025; 85379; 93005; 93010; 99284; 99285; A9270-GY; J7512

== ENCOUNTER 2022-12-17 01:00 | Emergency (ER) | payer OTHER ==
[2022-12-17] MEDS ORDERED: Sodium Chloride 0.9% 10 ML Syringe FLUSH PRN (01:07)
[2022-12-17] MEDS ORDERED: Sodium Chloride 0.9% 1,000 ML IV ONE (01:10)
[2022-12-17 01:15] LABS: BASOPHILS ABSOLUTE AUTO 0.02 K/uL (0.00-0.20); BASOPHILS PERCENT AUTO 0.4 % (0.0-2.0); EOSINOPHILS ABSOLUTE AUTO 0.19 K/uL (0.00-0.50); EOSINOPHILS PERCENT AUTO 3.5 % (0.0-5.0); HEMATOCRIT 42.1 % (39.0-49.0); HEMOGLOBIN 14.3 g/dL (13.1-16.8); LYMPHOCYTES ABSOLUTE AUTO 2.58 K/uL (0.50-3.50); LYMPHOCYTES PERCENT AUTO 47.7 % (10.0-50.0); MEAN CORPUSCULAR HEMOGLOBIN 30.6 pg (28.2-33.3); MONOCYTES ABSOLUTE AUTO 0.42 K/uL (0.00-1.00); MONOCYTES PERCENT AUTO 7.8 % (2.0-14.0); NEUTROPHILS PERCENT AUTO 40.6 % (45.0-80.0); PLATELET COUNT,PLT 241 K/uL (150-350); RED BLOOD CELL COUNT 4.68 M/uL (4.33-5.41); RED CELL DISTRIBUTION WIDTH 13.4 % (11.2-14.1); WHITE BLOOD CELL COUNT,WBC 5.4 K/uL (4.0-10.2)
[2022-12-17 01:37] LABS: ALANINE AMINOTRANSFERASE,ALT 27 U/L (12-78); ALBUMIN 3.9 g/dL (3.4-5.0); ALKALINE PHOSPHATASE 53 IU/L (46-116); ASPARTATE AMNIOTRANSFERASE,AST 26 U/L (15-37); BILIRUBIN TOTAL 0.3 mg/dL (0.2-1.0); BLOOD UREA NITROGEN,BUN 13 mg/dL (7-18); CALCIUM 8.6 mg/dL (8.5-10.1); CHLORIDE,CL 104 mmol/L (98-107); CREATININE 1.15 mg/dL (0.51-1.17); ETHANOL BLOOD MEDICAL 0.168 g/dL (0.000-0.080); GLUCOSE RANDOM 100 mg/dL (70-99); POTASSIUM,K 3.7 mmol/L (3.5-5.1); PROTEIN TOTAL,TP 7.1 g/dL (6.4-8.2); SODIUM,NA 138 mmol/L (136-145)
[2022-12-17 01:39] LABS: ESTIMATED GFR 73 mL/min (>=60)
[2022-12-17] MEDS: Iopamidol 612 MG/ML 100 ML Bottle ONE (01:45)
[2022-12-17 01:48] LABS: APPEARANCE,URINE CLEAR; BILIRUBIN,URINE NEGATIVE (NEGATIVE); COLOR,URINE YELLOW; GLUCOSE,URINE >=1000 mg/dL (NEGATIVE); KETONES,URINE NEGATIVE (NEGATIVE); LEUKOCYTE ESTERASE,URINE NEGATIVE (NEGATIVE); NITRITE,URINE NEGATIVE (NEGATIVE); OCCULT BLOOD,URINE TRACE-LYSED (NEGATIVE); PH,URINE 5.5 (5.0-9.0); PROTEIN,URINE NEGATIVE (NEGATIVE); UROBILINOGEN,URINE 0.2 E.U./dL (0.2-1.0)
[2022-12-17] MEDS ORDERED: Ondansetron 4 MG/2 ML SDV IVPUSH ONE (01:49)
[2022-12-17] MEDS ORDERED: fentaNYL 50 MCG/ML SDV IVPUSH ONE (01:49)
[2022-12-17 01:54] LABS: AMPHETAMINES SCREEN, URINE NEGATIVE (NEGATIVE); BARBITURATE SCREEN,URINE NEGATIVE (NEGATIVE); BENZODIAZEPINES SCREEN,URINE NEGATIVE (NEGATIVE); COCAINE METABOLITES,URINE NEGATIVE (NEGATIVE); EDDP,URINE SCREEN NEGATIVE (NEGATIVE); METHAMPHETAMINES SCREEN, URINE NEGATIVE (NEGATIVE); TCA SCREEN,URINE NEGATIVE (NEGATIVE); THC SCREEN,URINE 50 NG/ML NEGATIVE (NEGATIVE)
[2022-12-17 01:55] LABS: BUPRENORPHINE SCREEN,URINE NEGATIVE (NEGATIVE); OXYCODONE SCREEN,URINE NEGATIVE (NEGATIVE)
[2022-12-17 02:06] LABS: AMORPHOUS SEDIMENT,URINE RARE /HPF (0/HPF); BACTERIA,URINE NOT SEEN /HPF (NONE TO FEW); EPITHELIAL CELLS,URINE NOT SEEN /LPF; RBC,URINE 0-5 /HPF; WBC,URINE 0-5 /HPF
== END 2022-12-17 02:20 ==
LOC: LL.ED 01:00 → MERGE 01:00 → LL.ED 02:20
DX: R07.81 Pleurodynia (principal); V29.99XA Rider (driver) (passenger) of other motorcycle injured in unspecified traffic accident, initial encounter
CPT/HCPCS: 36415; 51702; 70450; 71260; 72125; 72131; 74177; 80053; 80305-QW; 80307; 81001; 82947; 83605; 83735; 84484; 85025; 93005; 93010; 96374; 96375; 99284; 99285-25; J2405; J3010; J7030; Q9967

== ENCOUNTER 2023-01-12 12:51 | Emergency (ER) | payer OTHER ==
[2023-01-12 13:03] LABS: APPEARANCE,URINE CLOUDY; BILIRUBIN,URINE NEGATIVE (NEGATIVE); COLOR,URINE YELLOW; GLUCOSE,URINE 500 mg/dL (NEGATIVE); KETONES,URINE NEGATIVE (NEGATIVE); LEUKOCYTE ESTERASE,URINE SMALL (NEGATIVE); NITRITE,URINE NEGATIVE (NEGATIVE); OCCULT BLOOD,URINE LARGE (NEGATIVE); PH,URINE 5.5 (5.0-9.0); PROTEIN,URINE >=300 mg/dL (NEGATIVE); UROBILINOGEN,URINE 0.2 E.U./dL (0.2-1.0)
[2023-01-12 13:12] LABS: RBC,URINE >100 /HPF; WBC,URINE >100 /HPF
[2023-01-12 13:13] LABS: BACTERIA,URINE MODERATE /HPF (NONE TO FEW); EPITHELIAL CELLS,URINE RARE /LPF; MUCUS,URINE FEW /LPF (NEGATIVE)
[2023-01-12 14:37] LABS: BASOPHILS ABSOLUTE AUTO 0.02 K/uL (0.00-0.20); BASOPHILS PERCENT AUTO 0.3 % (0.0-2.0); EOSINOPHILS ABSOLUTE AUTO 0.17 K/uL (0.00-0.50); EOSINOPHILS PERCENT AUTO 2.6 % (0.0-5.0); HEMATOCRIT 43.1 % (39.0-49.0); HEMOGLOBIN 14.4 g/dL (13.1-16.8); LYMPHOCYTES ABSOLUTE AUTO 1.82 K/uL (0.50-3.50); LYMPHOCYTES PERCENT AUTO 27.5 % (10.0-50.0); MEAN CORPUSCULAR HEMOGLOBIN 30.4 pg (28.2-33.3); MEAN CORPUSCULAR HGB CONC 33.4 g/dL (31.7-36.0); MEAN CORPUSCULAR VOLUME 91.1 fL (84.0-98.0); MONOCYTES ABSOLUTE AUTO 0.63 K/uL (0.00-1.00); MONOCYTES PERCENT AUTO 9.5 % (2.0-14.0); NEUTROPHILS ABSOLUTE AUTO 3.99 K/uL (1.40-7.00); NEUTROPHILS PERCENT AUTO 60.1 % (45.0-80.0); PLATELET COUNT,PLT 276 K/uL (150-350); RED BLOOD CELL COUNT 4.73 M/uL (4.33-5.41); RED CELL DISTRIBUTION WIDTH 12.9 % (11.2-14.1); WHITE BLOOD CELL COUNT,WBC 6.6 K/uL (4.0-10.2)
[2023-01-12 14:55] LABS: ALBUMIN 3.9 g/dL (3.4-5.0); BILIRUBIN TOTAL 0.3 mg/dL (0.2-1.0); CALCIUM 8.7 mg/dL (8.5-10.1); CARBON DIOXIDE,CO2 26.2 mmol/L (21.0-32.0); CREATININE 1.31 mg/dL (0.51-1.17); EST CRCL DRUG DOSING (CG) 67.33 mL/min; POTASSIUM,K 3.9 mmol/L (3.5-5.1); PROTEIN TOTAL,TP 7.1 g/dL (6.4-8.2)
[2023-01-12 14:57] LABS: ANION GAP 12.7 meq/L (7-15)
[2023-01-12] MEDS: Take Home: Nitrofurantoin Monohydrate/Macrocrystalline 100 MG, 6 Cap Pack PO ONE (16:02)
[2023-01-12 16:03] VITALS: BP 111/73; PULSE 61
== END 2023-01-12 16:09 | disposition home or self-care (01) ==
LOC: LL.ED 12:51
DX: N39.0 Urinary tract infection, site not specified (principal); F17.210 Nicotine dependence, cigarettes, uncomplicated; E78.00 Pure hypercholesterolemia, unspecified; I10 Essential (primary) hypertension; J44.9 Chronic obstructive pulmonary disease, unspecified; E11.9 Type 2 diabetes mellitus without complications; E66.9 Obesity, unspecified; Z86.16 Personal history of COVID-19; Z88.5 Allergy status to narcotic agent; Z88.8 Allergy status to other drugs, medicaments and biological substances; Z79.84 Long term (current) use of oral hypoglycemic drugs; Z79.899 Other long term (current) drug therapy; Z68.32 Body mass index [BMI] 32.0-32.9, adult
CPT/HCPCS: 36415; 74176; 80053; 81001; 85025; 87086; 87088; 87186; 99284; A9270-GY

== ENCOUNTER 2024-07-22 17:05 | Emergency (ER) | payer OTHER ==
[2024-07-22 17:51] LABS: BASOPHILS ABSOLUTE AUTO 0.03 K/uL (0.00-0.20); BASOPHILS PERCENT AUTO 0.3 % (0.0-2.0); EOSINOPHILS ABSOLUTE AUTO 0.22 K/uL (0.00-0.50); EOSINOPHILS PERCENT AUTO 2.4 % (0.0-5.0); HEMATOCRIT 48.5 % (39.0-49.0); HEMOGLOBIN 15.9 g/dL (13.1-16.8); IMMATURE GRAN ABSOLUTE AUTO 0.02 10^3/uL (0.00-0.04); IMMATURE GRAN PERCENT AUTO 0.2 % (0.0-0.4); LYMPHOCYTES ABSOLUTE AUTO 2.16 K/uL (0.50-3.50); LYMPHOCYTES PERCENT AUTO 23.7 % (10.0-50.0); MEAN CORPUSCULAR HEMOGLOBIN 29.6 pg (28.2-33.3); MEAN CORPUSCULAR HGB CONC 32.8 g/dL (31.7-36.0); MEAN CORPUSCULAR VOLUME 90.3 fL (84.0-98.0); MONOCYTES ABSOLUTE AUTO 0.69 K/uL (0.00-1.00); MONOCYTES PERCENT AUTO 7.6 % (2.0-14.0); NEUTROPHILS ABSOLUTE AUTO 5.98 K/uL (1.40-7.00); NEUTROPHILS PERCENT AUTO 65.8 % (45.0-80.0); PLATELET COUNT,PLT 260 K/uL (150-350); RED BLOOD CELL COUNT 5.37 M/uL (4.33-5.41); RED CELL DISTRIBUTION WIDTH 12.4 % (11.2-14.1); WHITE BLOOD CELL COUNT,WBC 9.1 K/uL (4.0-10.2)
[2024-07-22 18:19] LABS: ALANINE AMINOTRANSFERASE,ALT 23 U/L (12-78); ALBUMIN 4.1 g/dL (3.4-5.0); ALKALINE PHOSPHATASE 62 IU/L (46-116); ASPARTATE AMNIOTRANSFERASE,AST 19 U/L (15-37); BILIRUBIN TOTAL 0.3 mg/dL (0.2-1.0); BLOOD UREA NITROGEN,BUN 16 mg/dL (7-18); CALCIUM 9.3 mg/dL (8.5-10.1); CARBON DIOXIDE,CO2 26.3 mmol/L (21.0-32.0); CHLORIDE,CL 108 mmol/L (98-107); CREATININE 1.25 mg/dL (0.51-1.17); GLUCOSE RANDOM 134 mg/dL (70-99); LIPASE 61 U/L (16-77); POTASSIUM,K 4.2 mmol/L (3.5-5.1); PROTEIN TOTAL,TP 7.6 g/dL (6.4-8.2); SODIUM,NA 143 mmol/L (136-145)
[2024-07-22 18:20] LABS: ANION GAP 12.9 meq/L (7-15); ESTIMATED GFR 68 mL/min (>=60)
[2024-07-22] MEDS ORDERED: Naloxone 0.4 MG/ML SDV IVPUSH PRN (18:23)
[2024-07-22 18:24] LABS: PROTHROMBIN TIME 10.2 SEC (9.0-11.1); PTT,PARTIAL THROMBOPLSTIN TIME 20.2 SEC (23.8-34.4)
[2024-07-22 18:34] LABS: APPEARANCE,URINE CLEAR; BILIRUBIN,URINE NEGATIVE (NEGATIVE); COLOR,URINE YELLOW; GLUCOSE,URINE 500 mg/dL (NEGATIVE); KETONES,URINE NEGATIVE (NEGATIVE); LEUKOCYTE ESTERASE,URINE NEGATIVE (NEGATIVE); NITRITE,URINE NEGATIVE (NEGATIVE); OCCULT BLOOD,URINE NEGATIVE (NEGATIVE); PH,URINE 6.5 (5.0-9.0); PROTEIN,URINE NEGATIVE (NEGATIVE); UROBILINOGEN,URINE 0.2 E.U./dL (0.2-1.0)
[2024-07-22 18:40] LABS: AMPHETAMINES SCREEN, URINE NEGATIVE (NEGATIVE); BARBITURATE SCREEN,URINE NEGATIVE (NEGATIVE); BENZODIAZEPINES SCREEN,URINE NEGATIVE (NEGATIVE); COCAINE METABOLITES,URINE NEGATIVE (NEGATIVE); EDDP,URINE SCREEN NEGATIVE (NEGATIVE); METHAMPHETAMINES SCREEN, URINE NEGATIVE (NEGATIVE); TCA SCREEN,URINE NEGATIVE (NEGATIVE); THC SCREEN,URINE 50 NG/ML NEGATIVE (NEGATIVE)
[2024-07-22 18:42] LABS: BUPRENORPHINE SCREEN,URINE NEGATIVE (NEGATIVE); OXYCODONE SCREEN,URINE NEGATIVE (NEGATIVE)
[2024-07-22] MEDS: Sodium Chloride 0.9% 10 ML Syringe FLUSH PRN (18:45)
[2024-07-22] MEDS: HYDROmorphone 0.5 MG/0.5 ML Syringe IVPUSH ONE (18:45)
[2024-07-22 19:49] VITALS: BP 130/96; PULSE 62
[2024-07-22] MEDS: HYDROmorphone 1 MG/ML Syringe IVPUSH ONE (20:01)
== END 2024-07-22 20:18 | disposition home or self-care (01) ==
LOC: LL.ED 17:05
DX: M25.512 Pain in left shoulder (principal); M25.531 Pain in right wrist; I10 Essential (primary) hypertension; J44.9 Chronic obstructive pulmonary disease, unspecified; E11.9 Type 2 diabetes mellitus without complications; E78.00 Pure hypercholesterolemia, unspecified; Z88.5 Allergy status to narcotic agent; Z88.8 Allergy status to other drugs, medicaments and biological substances; Z79.899 Other long term (current) drug therapy; Z79.84 Long term (current) use of oral hypoglycemic drugs; Z79.51 Long term (current) use of inhaled steroids; V29.408A Other motorcycle driver injured in collision with unspecified motor vehicles in traffic accident, initial encounter; Y93.89 Activity, other specified
CPT/HCPCS: 36415; 70450; 71045; 72125; 72170; 73030-LT; 73100-RT; 80053; 80305-QW; 80307; 81003; 83690; 84484; 85025; 85610; 85730; 96374; 96376; 99284; 99284-25; J1171